=== PATIENT | female | born 1995 | race Caucasian/White ===

== ENCOUNTER 2017-03-31 14:51 | Emergency (ER) | payer SELFPAY ==
[~2017-03-31] VITALS: Ht 157.5 cm; Wt 63.5 kg
[~2017-03-31 14:51] MED LIST: ALBU8.5H2 IH; AMOX500C2 PO; ANTI14DR4 RIGHT EAR; AZTH250C PO; CIPR7.5D2 RIGHT EAR; Depo Provera; HYDR-3720 PO; METR500T PO; NAPR-243 PO; PRD20T PO; TRM50T PO
--- NOTE | 2017-03-31 16:23 | ED Upper Extremity ---
General Chief Complaint: Upper Extremity Stated Complaint: TINGLING FEELING ARMS,COULDNT SPEAK,ARMS LOCKED UP Source: patient Exam Limitations: no limitations History of Present Illness Time seen by provider: 16:20 Initial Comments To ER with reports of tingling and cramping in both of her hands that occurred while she was driving home. She states that her tongue "locked up" and she couldn't talk and she could feel her heart beating in her abdomen. In addition to this, she feels very anxious. She states that she's been under a little more increased stress than usual lately due to job transition. Spasms in her hands and her mouth are better she states, but she still is very shaky and anxious. Onset: just prior to arrival Severity: moderate Pain/Injury Location: bilateral hand Allergies and Home Medications Allergies Coded Allergies: No Known Drug Allergies (Unverified , 02/24/09) Home Medications No Active Prescriptions or Reported Meds Constitutional: see HPI EENTM: see HPI Respiratory: no symptoms reported Cardiovascular: no symptoms reported Genitourinary: no symptoms reported Musculoskeletal: no symptoms reported Skin: no symptoms reported Psychiatric/Neurological: See HPI, Anxiety Past Pmqmlcr-Fmxlvq-Rtrrne Hx Patient Social History Recent Foreign Travel: No Contact w/Someone Who Travel: No Surgeries HX Surgeries: Yes (WISDOM TEETH REMOVED) Respiratory Hx Respiratory Disorders: No Cardiovascular Hx Cardiac Disorders: No Neurological Hx Neurological Disorders: No Reproductive System Hx Reproductive Disorders: Yes (BILATERAL ADENEXAL MASS) Female Reproductive Disorders: Menstrual Problems, Ovarian Cyst Genitourinary Hx Genitourinary Disorders: No Gastrointestinal Hx Gastrointestinal Disorders: No Musculoskeletal Hx Musculoskeletal Disorders: No Endocrine Hx Endocrine Disorders: No HEENT HX ENT Disorders: No Cancer Hx Cancer: No Psychosocial Hx Psychiatric Problems: No Integumentary HX Skin/Integumentary Disorder: No Blood Transfusions Hx Blood Disorders: No Physical Exam Vital Signs Vital Sign - Last 12Hours 03/31/17 16:19 Temp 98.2 Pulse 78 Resp 16 B/P (MAP) 132/85 Capillary Refill : General Appearance: WD/WN, no apparent distress, other (anxious) HEENT: PERRL/EOMI, normal ENT inspection Neck: non-tender, full range of motion Respiratory: normal breath sounds, no respiratory distress, no accessory muscle use Gastrointestinal: normal bowel sounds, non tender, soft Shoulder: normal inspection, non-tender Elbow/Forearm: normal inspection, non-tender Wrist: Yes normal inspection, Yes non-tender Neurologic/Tendon: normal sensation, normal motor functions, normal tendon functions Neurologic/Psychiatric: alert, normal mood/affect, oriented x 3 Skin: normal color, warm/dry Progress/Results/Core Measures Results/Orders Lab Results Laboratory Tests Test 03/31/17 15:22 03/31/17 15:25 03/31/17 16:39 Range/Units Urine Color YELLOW Urine Clarity CLEAR Urine pH 6 5-9 Urine Specific [place] 1.010 L 1.016-1.022 Urine Protein NEGATIVE NEGATIVE Urine Glucose (UA) NEGATIVE NEGATIVE Urine Ketones NEGATIVE NEGATIVE Urine Nitrite NEGATIVE NEGATIVE Urine Bilirubin NEGATIVE NEGATIVE Urine Urobilinogen NORMAL NORMAL MG/DL Urine Leukocyte Esterase NEGATIVE NEGATIVE Urine RBC (Auto) 4+ H NEGATIVE Urine RBC 0-2 /HPF Urine WBC 0-2 /HPF Urine Squamous Epithelial Cells 0-2 /HPF Urine Crystals NONE /LPF Urine Bacteria NEGATIVE /HPF Urine Casts NONE /LPF Urine Mucus NEGATIVE /LPF Urine Culture Indicated NO Urine Opiates Screen NEGATIVE NEGATIVE Urine Oxycodone Screen NEGATIVE NEGATIVE Urine Methadone Screen NEGATIVE NEGATIVE Urine Propoxyphene Screen NEGATIVE NEGATIVE Urine Barbiturates Screen NEGATIVE NEGATIVE Ur Tricyclic Antidepressants Screen NEGATIVE NEGATIVE Urine Phencyclidine Screen NEGATIVE NEGATIVE Urine Amphetamines Screen NEGATIVE NEGATIVE Urine Methamphetamines Screen NEGATIVE NEGATIVE Urine Benzodiazepines Screen NEGATIVE NEGATIVE Urine Cocaine Screen NEGATIVE NEGATIVE Urine Cannabinoids Screen POSITIVE H NEGATIVE Urine Test NEGATIVE NEGATIVE White Blood Count 16.7 H 4.3-11.0 10^3/uL Red Blood Count 4.81 4.35-5.85 10^6/uL Hemoglobin 14.5 11.5-16.0 G/DL Hematocrit 42 35-52 % Mean Corpuscular Volume 87 80-99 FL Mean Corpuscular Hemoglobin 30 25-34 PG Mean Corpuscular Hemoglobin Concent 35 32-36 G/DL Red Cell Distribution Width 13.0 10.0-14.5 % Platelet Count 281 130-400 10^3/uL Mean Platelet Volume 10.2 7.4-10.4 FL Neutrophils (%) (Auto) 83 H 42-75 % Lymphocytes (%) (Auto) 12 12-44 % Monocytes (%) (Auto) 5 0-12 % Eosinophils (%) (Auto) 0 0-10 % Basophils (%) (Auto) 0 0-10 % Neutrophils # (Auto) 13.9 H 1.8-7.8 X 10^3 Lymphocytes # (Auto) 1.9 1.0-4.0 X 10^3 Monocytes # (Auto) 0.8 0.0-1.0 X 10^3 Eosinophils # (Auto) 0.0 0.0-0.3 10^3/uL Basophils # (Auto) 0.0 0.0-0.1 10^3/uL Neutrophils % (Manual) 76 % Lymphocytes % (Manual) 23 % Monocytes % (Manual) 1 % Eosinophils % (Manual) 0 % Basophils % (Manual) 0 % Band Neutrophils 0 % Blood Morphology Comment NORMAL Sodium Level 140 135-145 MMOL/L Potassium Level 3.4 L 3.6-5.0 MMOL/L Chloride Level 107 98-107 MMOL/L Carbon Dioxide Level 21 21-32 MMOL/L Anion Gap 12 5-14 MMOL/L Blood Urea Nitrogen 14 7-18 MG/DL Creatinine 0.83 0.60-1.30 MG/DL Estimat Glomerular Filtration Rate > 60 BUN/Creatinine Ratio 17 Glucose Level 76 70-105 MG/DL Calcium Level 10.0 8.5-10.1 MG/DL Total Bilirubin 0.8 0.1-1.0 MG/DL Aspartate Amino Transf (AST/SGOT) 14 5-34 U/L Alanine Aminotransferase (ALT/SGPT) 12 0-55 U/L Alkaline Phosphatase 57 40-136 U/L Total Protein 7.6 6.4-8.2 GM/DL Albumin 4.6 H 3.2-4.5 GM/DL My Orders Orders - JOCELYNN HOWARD TANK WASHER Cbc With Automated Diff (03/31/17 16:19) Comprehensive Metabolic Panel (03/31/17 16:19) Ua Culture If Indicated (03/31/17 16:19) Drug Screen Stat (Urine) (03/31/17 16:19) Thyroid Stimulating Hormone (03/31/17 16:19) Alprazolam Tablet (Xanax Tablet) (03/31/17 16:30) Hcg,Qualitative Urine (03/31/17 16:30) Manual Differential (03/31/17 16:39) Potassium Chloride (Tablet) (Klor Con Ta (03/31/17 17:30) Vital Signs/I&O Vital Sign - Last 12Hours 03/31/17 16:19 Temp 98.2 Pulse 78 Resp 16 B/P (MAP) 132/85 Departure Impression Impression: Primary Impression: Anxiety Disposition: 01 HOME, SELF-CARE Condition: Stable Departure-Patient Inst. Decision time for Depature: 16:22 Referrals: NO,LOCAL PHYSICIAN (PCP/Family) Primary Care Physician Patient Instructions: Panic Disorder Add. Discharge Instructions: 1. Her white blood cells were a little high side. This would warrant being rechecked next week by your regular physician. 2. Return to ER for any concerns 3. All discharge instructions reviewed with patient and/or family. Voiced understanding. Scripts No Active Prescriptions or Reported Meds JOCELYNN HOWARD APRN Mar 31, 2017 16:23
[2017-03-31 16:29] LABS: BILIRUBIN,URINE NEGATIVE (NEGATIVE); KETONES,URINE NEGATIVE (NEGATIVE); LEUKOCYTE ESTERASE ,URINE NEGATIVE (NEGATIVE); NITRITE,URINE NEGATIVE (NEGATIVE); PH,URINE 6 (5-9); PROTEIN,URINE NEGATIVE (NEGATIVE); UROBILINOGEN,URINE NORMAL (NORMAL)
[2017-03-31] MEDS ORDERED: ALPRAZolam 0.5 MG (XANAX) TAB PO SCH (16:30)
[2017-03-31 16:43] LABS: WBC,URINE 0-2 /HPF
[2017-03-31 16:44] LABS: SQUAMOUS EPITHELIAL CELL,UR 0-2 /HPF
[2017-03-31 16:51] LABS: BASOPHILS % (AUTO) 0 % (0-10); EOSINOPHILS % (AUTO) 0 % (0-10); LYMPHOCYTES # (AUTO) 1.9 X 10^3 (1.0-4.0); LYMPHOCYTES % (AUTO) 12 % (12-44); MEAN CORPUSCULAR HEMOGLOBIN 30 PG (25-34); MEAN CORPUSCULAR HGB CONC 35 G/DL (32-36); MEAN CORPUSCULAR VOLUME 87 FL (80-99); MEAN PLATELET VOLUME 10.2 FL (7.4-10.4); MONOCYTES # (AUTO) 0.8 X 10^3 (0.0-1.0); MONOCYTES % (AUTO) 5 % (0-12); NEUTROPHILS # (AUTO) 13.9 X 10^3 (1.8-7.8); NEUTROPHILS % (AUTO) 83 % (42-75); PLATELET COUNT 281 10^3/uL (130-400); RED BLOOD COUNT 4.81 10^6/uL (4.35-5.85); WHITE BLOOD COUNT 16.7 10^3/uL (4.3-11.0)
[2017-03-31 17:03] LABS: BAND NEUTROPHILS 0 %; BASOPHILS % (MANUAL) 0 %; EOSINOPHILS % (MANUAL) 0 %; LYMPHOCYTES % (MANUAL) 23 %; NEUTROPHILS % (MANUAL) 76 %
[2017-03-31 17:16] LABS: ALANINE AMINOTRANSFERASE 12 U/L (0-55); ALBUMIN 4.6 GM/DL (3.2-4.5); ANION GAP 12 MMOL/L (5-14); ASPARTATE AMINO TRANSFERASE 14 U/L (5-34); BILIRUBIN,TOTAL 0.8 MG/DL (0.1-1.0); BLOOD UREA NITROGEN 14 MG/DL (7-18); BUN/CREATININE RATIO 17; CARBON DIOXIDE 21 MMOL/L (21-32); CHLORIDE 107 MMOL/L (98-107); CREATININE SERUM 0.83 MG/DL (0.60-1.30); GFR ESTIMATED > 60; GLUCOSE 76 MG/DL (70-105); POTASSIUM 3.4 MMOL/L (3.6-5.0); SODIUM 140 MMOL/L (135-145); TOTAL PROTEIN 7.6 GM/DL (6.4-8.2)
[2017-03-31] MEDS ORDERED: KCL 10 MEQ TAB (MICRO K) PO ONE (17:30)
[2017-03-31 17:42] VITALS: BP 128/92
== END 2017-03-31 17:42 | disposition home or self-care (01) ==
LOC: EDUNIT# 14:51 → ER 14:55
DX: F41.9 Anxiety disorder, unspecified (principal); Z87.42 Personal history of other diseases of the female genital tract; Z98.818 Other dental procedure status
CPT/HCPCS: 36415; 80053; 80306; 81000; 84443; 84703; 85007; 85027; 99283

== ENCOUNTER 2018-12-24 14:43 | Emergency (ER) | payer SELFPAY ==
[~2018-12-24] VITALS: Ht 157.5 cm; Wt 90.7 kg
[2018-12-24 15:12] LABS: BASOPHILS % (AUTO) 0 % (0-10); EOSINOPHILS # (AUTO) 0.1 10^3/uL (0.0-0.3); EOSINOPHILS % (AUTO) 0 % (0-10); HEMATOCRIT 42 % (35-52); HEMOGLOBIN 14.1 G/DL (11.5-16.0); LYMPHOCYTES # (AUTO) 3.6 X 10^3 (1.0-4.0); LYMPHOCYTES % (AUTO) 19 % (12-44); MEAN CORPUSCULAR HEMOGLOBIN 27 PG (25-34); MEAN CORPUSCULAR HGB CONC 34 G/DL (32-36); MEAN CORPUSCULAR VOLUME 80 FL (80-99); MEAN PLATELET VOLUME 10.3 FL (7.4-10.4); MONOCYTES # (AUTO) 1.5 X 10^3 (0.0-1.0); MONOCYTES % (AUTO) 8 % (0-12); NEUTROPHILS # (AUTO) 13.2 X 10^3 (1.8-7.8); NEUTROPHILS % (AUTO) 72 % (42-75); PLATELET COUNT 307 10^3/uL (130-400); RED CELL DISTRIBUTION WIDTH 15.8 % (10.0-14.5); WHITE BLOOD COUNT 18.4 10^3/uL (4.3-11.0)
[2018-12-24] MEDS ORDERED: NS IV 1000 ML 1,000 ML IV SCH (15:15)
[2018-12-24 15:22] LABS: ALANINE AMINOTRANSFERASE 16 U/L (0-55); ALBUMIN 4.8 GM/DL (3.2-4.5); ALKALINE PHOSPHATASE 90 U/L (40-136); BILIRUBIN,TOTAL 0.4 MG/DL (0.1-1.0); BUN/CREATININE RATIO 11; CALCIUM 9.6 MG/DL (8.5-10.1); CARBON DIOXIDE 16 MMOL/L (21-32); CHLORIDE 105 MMOL/L (98-107); CREATININE SERUM 0.87 MG/DL (0.60-1.30); GFR ESTIMATED > 60; GLUCOSE 113 MG/DL (70-105); POTASSIUM 3.4 MMOL/L (3.6-5.0); SODIUM 141 MMOL/L (135-145); TOTAL PROTEIN 7.8 GM/DL (6.4-8.2)
--- NOTE | 2018-12-24 15:27 | ED General ---
General Chief Complaint: General Problems/Pain Stated Complaint: NEUR PROBLEMS Source of Information: Patient Exam Limitations: No Limitations History of Present Illness Date Seen by Provider: Dec 24, 2018 Time Seen by Provider: 15:00 Allergies and Home Medications Allergies Coded Allergies: No Known Drug Allergies (Unverified , 02/24/09) Past Ydxovfx-Jlauae-Qdrccw Hx Patient Social History Drug of Choice: marijuana 2nd Hand Smoke Exposure: No Recent Foreign Travel: No Contact w/Someone Who Travel: No Recent Hopitalizations: No Past Medical History Surgeries: Yes (WISDOM TEETH REMOVED, laparoscopy) Appendectomy, Bowel Surgery Respiratory: No Cardiac: No Neurological: No Reproductive Disorders: Yes (BILATERAL ADENEXAL MASS) Female Reproductive Disorders: Menstrual Problems, Endometriosis, Ovarian Cyst Gastrointestinal: No Musculoskeletal: No Endocrine: No Cancer: No Psychosocial: No Integumentary: No Blood Disorders: No Physical Exam Vital Signs Vital Signs - First Documented 12/24/18 14:43 Temp 98.5 Pulse 138 Resp 39 B/P (MAP) 151/105 (120) Pulse Ox 100 O2 Delivery Room Air Capillary Refill : Height, Weight, BMI Height: 5'2.00" Weight: 140lbs. oz. 63.434250ji; BMI Method:Stated Progress/Results/Core Measures Suspected Sepsis SIRS Temperature: Pulse: Respiratory Rate: Laboratory Tests 12/24/18 14:50: White Blood Count 18.4H Blood Pressure / Mean: Laboratory Tests 12/24/18 14:50: Creatinine 0.87, Platelet Count 307, Total Bilirubin 0.4 Results/Orders Lab Results Laboratory Tests Test 12/24/18 14:50 12/24/18 15:15 Range/Units White Blood Count 18.4 H 4.3-11.0 10^3/uL Red Blood Count 5.25 4.35-5.85 10^6/uL Hemoglobin 14.1 11.5-16.0 G/DL Hematocrit 42 35-52 % Mean Corpuscular Volume 80 80-99 FL Mean Corpuscular Hemoglobin 27 25-34 PG Mean Corpuscular Hemoglobin Concent 34 32-36 G/DL Red Cell Distribution Width 15.8 H 10.0-14.5 % Platelet Count 307 130-400 10^3/uL Mean Platelet Volume 10.3 7.4-10.4 FL Neutrophils (%) (Auto) 72 42-75 % Lymphocytes (%) (Auto) 19 12-44 % Monocytes (%) (Auto) 8 0-12 % Eosinophils (%) (Auto) 0 0-10 % Basophils (%) (Auto) 0 0-10 % Neutrophils # (Auto) 13.2 H 1.8-7.8 X 10^3 Lymphocytes # (Auto) 3.6 1.0-4.0 X 10^3 Monocytes # (Auto) 1.5 H 0.0-1.0 X 10^3 Eosinophils # (Auto) 0.1 0.0-0.3 10^3/uL Basophils # (Auto) 0.0 0.0-0.1 10^3/uL Neutrophils % (Manual) 74 % Lymphocytes % (Manual) 19 % Monocytes % (Manual) 6 % Eosinophils % (Manual) 1 % Basophils % (Manual) 0 % Band Neutrophils 0 % Blood Morphology Comment NORMAL Sodium Level 141 135-145 MMOL/L Potassium Level 3.4 L 3.6-5.0 MMOL/L Chloride Level 105 98-107 MMOL/L Carbon Dioxide Level 16 L 21-32 MMOL/L Anion Gap 20 H 5-14 MMOL/L Blood Urea Nitrogen 10 7-18 MG/DL Creatinine 0.87 0.60-1.30 MG/DL Estimat Glomerular Filtration Rate > 60 BUN/Creatinine Ratio 11 Glucose Level 113 H 70-105 MG/DL Calcium Level 9.6 8.5-10.1 MG/DL Corrected Calcium 8.5-10.1 MG/DL Total Bilirubin 0.4 0.1-1.0 MG/DL Aspartate Amino Transf (AST/SGOT) 16 5-34 U/L Alanine Aminotransferase (ALT/SGPT) 16 0-55 U/L Alkaline Phosphatase 90 40-136 U/L Total Protein 7.8 6.4-8.2 GM/DL Albumin 4.8 H 3.2-4.5 GM/DL Urine Color YELLOW Urine Clarity CLEAR Urine pH 5 5-9 Urine Specific [place] 1.025 H 1.016-1.022 Urine Protein 1+ H NEGATIVE Urine Glucose (UA) NEGATIVE NEGATIVE Urine Ketones 2+ H NEGATIVE Urine Nitrite NEGATIVE NEGATIVE Urine Bilirubin NEGATIVE NEGATIVE Urine Urobilinogen NORMAL NORMAL MG/DL Urine Leukocyte Esterase NEGATIVE NEGATIVE Urine RBC (Auto) 3+ H NEGATIVE Urine RBC RARE /HPF Urine WBC NONE /HPF Urine Squamous Epithelial Cells 2-5 /HPF Urine Crystals NONE /LPF Urine Bacteria NEGATIVE /HPF Urine Casts NONE /LPF Urine Mucus NEGATIVE /LPF Urine Culture Indicated NO Urine Test NEGATIVE NEGATIVE Urine Opiates Screen NEGATIVE NEGATIVE Urine Oxycodone Screen NEGATIVE NEGATIVE Urine Methadone Screen NEGATIVE NEGATIVE Urine Propoxyphene Screen NEGATIVE NEGATIVE Urine Barbiturates Screen NEGATIVE NEGATIVE Ur Tricyclic Antidepressants Screen NEGATIVE NEGATIVE Urine Phencyclidine Screen NEGATIVE NEGATIVE Urine Amphetamines Screen NEGATIVE NEGATIVE Urine Methamphetamines Screen NEGATIVE NEGATIVE Urine Benzodiazepines Screen NEGATIVE NEGATIVE Urine Cocaine Screen NEGATIVE NEGATIVE Urine Cannabinoids Screen POSITIVE H NEGATIVE My Orders Orders - KATERINE HERNANDEZ Comprehensive Metabolic Panel (12/24/18 15:02) Ua Culture If Indicated (12/24/18 15:02) Ed Iv/Invasive Line Start (12/24/18 15:02) Cbc With Automated Diff (12/24/18 15:02) Drug Screen Stat (Urine) (12/24/18 15:02) Ns Iv 1000 Ml (Sodium Chloride 0.9%) (12/24/18 15:15) Manual Differential (12/24/18 14:50) Hcg,Qualitative Urine (12/24/18 15:26) Vital Signs/I&O 12/24/18 14:43 Temp 98.5 Pulse 138 Resp 39 B/P (MAP) 151/105 (120) Pulse Ox 100 O2 Delivery Room Air Capillary Refill : Departure Impression Primary Impression: Panic attack Disposition: 01 HOME, SELF-CARE Condition: Stable/Unchanged Departure-Patient Inst. Decision time for Depature: 15:56 Referrals: NO,LOCAL PHYSICIAN (PCP/Family) Primary Care Physician Patient Instructions: Panic Disorder (DC) Add. Discharge Instructions: Refrain from using the weight loss medication. Follow-up with your primary care provider within 1 week for recheck. Return back to the emergency room for worsening symptoms or concerns as needed. All discharge instructions reviewed with patient and/or family. Voiced understanding. KATERINE HERNANDEZ Dec 24, 2018 15:27
[2018-12-24 15:28] LABS: BILIRUBIN,URINE NEGATIVE (NEGATIVE); CLARITY,URINE CLEAR; COLOR,URINE YELLOW; GLUCOSE, URINE (UA) NEGATIVE (NEGATIVE); KETONES,URINE 2+ (NEGATIVE); LEUKOCYTE ESTERASE ,URINE NEGATIVE (NEGATIVE); NITRITE,URINE NEGATIVE (NEGATIVE); PH,URINE 5 (5-9); PROTEIN,URINE 1+ (NEGATIVE); UROBILINOGEN,URINE NORMAL (NORMAL)
[2018-12-24 15:40] LABS: BAND NEUTROPHILS 0 %; BASOPHILS % (MANUAL) 0 %; EOSINOPHILS % (MANUAL) 1 %; LYMPHOCYTES % (MANUAL) 19 %; MONOCYTES % (MANUAL) 6 %; NEUTROPHILS % (MANUAL) 74 %; RBC MORPH NORMAL
[2018-12-24 15:41] LABS: BACTERIA,URINE NEGATIVE /HPF; RBC,URINE RARE /HPF
[2018-12-24 15:45] LABS: AMPHETAMINE SCREEN, URINE NEGATIVE (NEGATIVE); BARBITURATE SCREEN URINE NEGATIVE (NEGATIVE); BENZODIAZEPINES SCREEN URINE NEGATIVE (NEGATIVE); CANNABINOID SCREEN, URINE POSITIVE (NEGATIVE); COCAINE SCREEN URINE NEGATIVE (NEGATIVE); METHADONE STAT NEGATIVE (NEGATIVE); METHAMPHETAMINE SCREEN URINE S NEGATIVE (NEGATIVE); OPIATE SCREEN URINE NEGATIVE (NEGATIVE); OXYCODONE STAT NEGATIVE (NEGATIVE); PROPOXYPHENE STAT NEGATIVE (NEGATIVE); TRICYCLIC ANTIDEPRESSANTS SCRE NEGATIVE (NEGATIVE)
--- OUTSIDE RECORDS SUMMARY | 2018-12-24 16:28 | XMS REPORT ---
Author Author Migration, Doctor Organization [facility] Address Unknown Phone Unavailable Care Team Providers Care Telephone Quotation Clerk Name Role Phone Migration, Doctor Unavailable Unavailable PROBLEMS Type Condition ICD9-CM Code LUO63-SL Code Onset Dates Condition Status SNOMED Code Problem General counseling for initiation of other contraceptive measures V25.02 Active 046011347018865 Problem General counseling for prescription of oral contraceptives V25.01 Active 102426791895715 Problem Problems related to high-risk sexual behavior V69.2 Active 912801315 Problem Screening examination for venereal disease V74.5 Active 910127588 Problem Unspecified otitis media 382.9 Active 27068261 Problem Surveillance of other previously prescribed contraceptive method V25.49 Active 101288334 Problem Dysfunction of Eustachian tube 381.81 Active 09691832 Problem Unspecified contraceptive management V25.9 Active 179670301 Problem Need for prophylactic vaccination and inoculation, Influenza V04.81 Active 197928187 Problem Unspecified symptom associated with female genital organs 625.9 Active 118037722 Problem Leukorrhea, not specified as infective 623.5 Active 264338372 Problem Other and unspecified ovarian cyst 620.2 Active 05000518 ALLERGIES No Information ENCOUNTERS Encounter Location Date Diagnosis [facility] [id number] [place] [phone] May, Allergic rhinitis, unspecified seasonality, unspecified trigger J30.9 and Common cold J00 [facility] IN [facility] [id number] [place] [address] Jul, Tooth abscess K04.7 and Pain, dental K08.89 [facility] [id number] [place] [address] Dec, [facility] [id number] [place] [address] Dec, [facility] [address] [place] [address] January, [facility] [address] [id number] [place] [address] January, [facility] [place] [facility] [address] [id number] [place] [address] Nov, [facility] [place] [facility] [address] [id number] [place] [address] Nov, [facility] [place] [facility] [address] [id number] [place] [address] Jul, [facility] [place] [facility] [address] [id number] [place] [address] Jul, [facility] [place] [facility] [address] [id number] [place] [address] May, [facility] [place] [facility] [address] [id number] [place] [address] Mar, [facility] [place] [facility] [address] [id number] [place] [address] Mar, [facility] [place] [facility] [address] [id number] [place] [address] Mar, [facility] [place] [facility] [address] [id number] [place] [address] Mar, [facility] [place] [facility] [address] [id number] [place] [address] Feb, [facility] [place] [facility] [address] [id number] [place] [address] Nov, [facility] [place] [facility] [address] [id number] [place] [address] Sep, [facility] [place] [facility] [address] [id number] [place] [address] Sep, [facility] [place] [facility] [address] [id number] [place] [address] Jul, [facility] [place] [facility] [address] [facility] [id number] [address] Jul, [facility] [address] [id number] [address] Apr, [facility] [address] [address] Apr, [facility] [address], [place] [address] January, [facility] [address] [id number] [address] Jul, [facility] [address], [place] [address] Feb, IMMUNIZATIONS No Known Immunizations SOCIAL HISTORY Never Assessed REASON FOR VISIT EMR-[facility] PLAN OF CARE VITAL SIGNS MEDICATIONS Medication Instructions Dosage Frequency Start Date End Date Duration Status tramadol by oral route Jul, Active Naproxen 500 mg take 1 tablet (500 mg) by oral route 2 times per day with food PRN Jul, Active Cephalexin 500 mg 1 capsule by Oral route 2 times per day for 10 days Sep, Active Flagyl 500 mg 1 tablet by Oral route 2 times per day for 7 days Mar Active Aviane 0.1-20 mg-mcg 1 tablet by Oral route 1 time per day Jul, Active RESULTS No Results PROCEDURES No Known procedures INSTRUCTIONS MEDICATIONS ADMINISTERED No Known Medications MEDICAL (GENERAL) HISTORY Type Description Date Surgical History section 03/2018
--- OUTSIDE RECORDS SUMMARY | 2018-12-24 16:28 | XMS REPORT ---
Author Author Migration, Doctor Organization [facility] Address Unknown Phone Unavailable Care Team Providers Care Metal Drill Press Operator Name Role Phone Migration, Doctor Unavailable Unavailable PROBLEMS Type Condition ICD9-CM Code HVB03-HY Code Onset Dates Condition Status SNOMED Code Problem General counseling for initiation of other contraceptive measures V25.02 Active [id number] Problem General counseling for prescription of oral contraceptives V25.01 Active 442533550276689 Problem Problems related to high-risk sexual behavior V69.2 Active 193232692 Problem Screening examination for venereal disease V74.5 Active 841551197 Problem Unspecified otitis media 382.9 Active 95256021 Problem Surveillance of other previously prescribed contraceptive method V25.49 Active 368626091 Problem Dysfunction of Eustachian tube 381.81 Active 43939528 Problem Unspecified contraceptive management V25.9 Active 221685461 Problem Need for prophylactic vaccination and inoculation, Influenza V04.81 Active 878448738 Problem Unspecified symptom associated with female genital organs 625.9 Active 623063417 Problem Leukorrhea, not specified as infective 623.5 Active 953423386 Problem Other and unspecified ovarian cyst 620.2 Active 64299257 ALLERGIES No Information ENCOUNTERS Encounter Location Date Diagnosis [facility] [id number] [place] [address] May, Allergic rhinitis, unspecified seasonality, unspecified trigger J30.9 and Common cold J00 [facility] IN [facility] [id number] [place] [address] Jul, Tooth abscess K04.7 and Pain, dental K08.89 [facility] [id number] [place] [address] Dec, [facility] [id number] [place] [address] Dec, [facility] [address] [place] [address] January, [facility] [address] [id number] [place] [address] January, [facility] [place] [facility] [address] [id number] [place] [address] Nov, [facility] [place] [facility] [address] [id number] [place] [address] Nov, [facility] [place] [facility] [address] [id number] [place] [address] Jul, [facility] [place] [facility] [address] [id number] [place] [address] Jul, [facility] [place] [facility] [address] [id number] [place] [address] May, [facility] [place] [facility] [address] [id number] [place] [address] Mar, [facility] [place] [facility] [address] [id number] [place] [address] Mar, [facility] [place] [facility] [address] [id number] [place] [address] Mar, [facility] [place] [facility] [address] [id number] [place] [address] Mar, [facility] [place] [facility] [address] [id number] [place] [address] Feb, [facility] [place] [facility] [address] [id number] [place] [address] Nov, [facility] [place] [facility] [address] [id number] [place] [address] Sep, [facility] [place] [facility] [address] [id number] [place] [address] Sep, [facility] [place] [facility] [address] [id number] [place] [address] Jul, [facility] [place] [facility] [address] [id number] [address] Jul, [facility] [address] [address] Apr, [facility] [address] [address] Apr, [facility] [address] [address] January, [facility] [address] [address] Jul, [facility] [address] [address] Feb, IMMUNIZATIONS No Known Immunizations SOCIAL HISTORY Never Assessed REASON FOR VISIT EMR-[facility] [place] [facility] PLAN OF CARE VITAL SIGNS MEDICATIONS No Known Medications RESULTS No Results PROCEDURES No Known procedures INSTRUCTIONS MEDICATIONS ADMINISTERED No Known Medications MEDICAL (GENERAL) HISTORY Type Description Date Surgical History section 03/2018
--- OUTSIDE RECORDS SUMMARY | 2018-12-24 16:29 | XMS REPORT | Continuity of Care Document ---
Author Organization Unknown Address Unknown Allergies Active Description Code Type Severity Reaction Onset Reported/Identified Relationship to Patient Clinical Status Yes No Known Drug Allergies [id number] Drug Allergy Mild N/A 02/24/2009 Medications There is no data. Problems Date Dx Coded Attending Type Code Diagnosis Diagnosed By 05/26/2010 461.9 SINUSITIS ACUTE 05/26/2010 461.9 SINUSITIS ACUTE 05/26/2010 461.9 SINUSITIS ACUTE 05/26/2010 461.9 SINUSITIS ACUTE 05/26/2010 461.9 SINUSITIS ACUTE 05/26/2010 461.9 SINUSITIS ACUTE 05/26/2010 IKER POTTS APRN A 461.9 SINUSITIS ACUTE 05/26/2010 IKER POTTS APRN A 461.9 SINUSITIS ACUTE 05/26/2010 LETHA POTTS APRNIDI A 461.9 SINUSITIS ACUTE 05/26/2010 LETHA POTTS APRNIDI A 461.9 SINUSITIS ACUTE 02/15/2011 599.0 URINARY TRACT INFECTION 02/15/2011 599.0 URINARY TRACT INFECTION 02/15/2011 599.0 URINARY TRACT INFECTION 02/15/2011 599.0 URINARY TRACT INFECTION 02/15/2011 599.0 URINARY TRACT INFECTION 02/15/2011 599.0 URINARY TRACT INFECTION 02/15/2011 LETHA POTTS APRNIDI A 599.0 URINARY TRACT INFECTION 02/15/2011 DELROY STALLINGS IKER A 599.0 URINARY TRACT INFECTION 02/15/2011 LETHA POTTS APRNIDI A 599.0 URINARY TRACT INFECTION 02/15/2011 LETHA POTTS APRNIDI A 599.0 URINARY TRACT INFECTION 07/06/2011 V25.09 CONTRACEPTIVE COUNSELING - GENERAL 07/06/2011 V65.45 STD COUNSELING 07/06/2011 V25.09 CONTRACEPTIVE COUNSELING - GENERAL 07/06/2011 V65.45 STD COUNSELING 07/06/2011 V25.09 CONTRACEPTIVE COUNSELING - GENERAL 07/06/2011 V65.45 STD COUNSELING 07/06/2011 V25.09 CONTRACEPTIVE COUNSELING - GENERAL 07/06/2011 V65.45 STD COUNSELING 07/06/2011 V25.09 CONTRACEPTIVE COUNSELING - GENERAL 07/06/2011 V65.45 STD COUNSELING 07/06/2011 V25.09 CONTRACEPTIVE COUNSELING - GENERAL 07/06/2011 V65.45 STD COUNSELING 07/06/2011 IKER POTTS APRN A V25.09 CONTRACEPTIVE COUNSELING - GENERAL 07/06/2011 IKER POTTS APRN A V65.45 STD COUNSELING 07/06/2011 IKER POTTS APRN A V25.09 CONTRACEPTIVE COUNSELING - GENERAL 07/06/2011 IKER POTTS APRN A V65.45 STD COUNSELING 07/06/2011 IKER POTTS APRN A V25.09 CONTRACEPTIVE COUNSELING - GENERAL 07/06/2011 IKER POTTS APRN A V65.45 STD COUNSELING 07/06/2011 IKER POTTS APRN A V25.09 CONTRACEPTIVE COUNSELING - GENERAL 07/06/2011 IKER POTTS APRN A V65.45 STD COUNSELING 01/11/2012 V25.9 CONTRACEPTION MANAGEMENT 01/11/2012 V69.2 HIGH-RISK SEXUAL BEHAVIOR 01/11/2012 V25.9 CONTRACEPTION MANAGEMENT 01/11/2012 V69.2 HIGH-RISK SEXUAL BEHAVIOR 01/11/2012 V25.9 CONTRACEPTION MANAGEMENT 01/11/2012 V69.2 HIGH-RISK SEXUAL BEHAVIOR 01/11/2012 V25.9 CONTRACEPTION MANAGEMENT 01/11/2012 V69.2 HIGH-RISK SEXUAL BEHAVIOR 01/11/2012 V25.9 CONTRACEPTION MANAGEMENT 01/11/2012 V69.2 HIGH-RISK SEXUAL BEHAVIOR 01/11/2012 V25.9 CONTRACEPTION MANAGEMENT 01/11/2012 V69.2 HIGH-RISK SEXUAL BEHAVIOR 01/11/2012 IKER POTTS APRN A V25.9 CONTRACEPTION MANAGEMENT 01/11/2012 IKER POTTS APRN A V69.2 HIGH-RISK SEXUAL BEHAVIOR 01/11/2012 IKER POTTS APRN A V25.9 CONTRACEPTION MANAGEMENT 01/11/2012 IKER POTTS APRN A V69.2 HIGH-RISK SEXUAL BEHAVIOR 01/11/2012 LETHA POTTS APRNCHRIS Zhao V25.9 CONTRACEPTION MANAGEMENT 01/11/2012 LETHA POTTS APRNCHRIS Zhao V69.2 HIGH-RISK SEXUAL BEHAVIOR 01/11/2012 LETHA OPTTS APRNCHRIS Zhao V25.9 CONTRACEPTION MANAGEMENT 01/11/2012 LETHA POTTS APRNCHRIS Zhao V69.2 HIGH-RISK SEXUAL BEHAVIOR 04/09/2012 V25.49 CONTRACEPTION SURVEILLANCE (REPEAT RX) 04/09/2012 V25.49 CONTRACEPTION SURVEILLANCE (REPEAT RX) 04/09/2012 V25.49 CONTRACEPTION SURVEILLANCE (REPEAT RX) 04/09/2012 V25.49 CONTRACEPTION SURVEILLANCE (REPEAT RX) 04/09/2012 V25.49 CONTRACEPTION SURVEILLANCE (REPEAT RX) 04/09/2012 V25.49 CONTRACEPTION SURVEILLANCE (REPEAT RX) 04/09/2012 DELROY ATHLETIC TRAINERIKER No V25.49 CONTRACEPTION SURVEILLANCE (REPEAT RX) 04/09/2012 DELROY ATHLETIC TRAINER, IKER A V25.49 CONTRACEPTION SURVEILLANCE (REPEAT RX) 04/09/2012 DELROY ATHLETIC TRAINER, IKER A V25.49 CONTRACEPTION SURVEILLANCE (REPEAT RX) 04/09/2012 DELROY VAILMarybel IKER A V25.49 CONTRACEPTION SURVEILLANCE (REPEAT RX) 09/19/2012 382.9 OTITIS MEDIA 09/19/2012 V04.81 FLU DX (3 YRS AND ABOVE, IM) 09/19/2012 382.9 OTITIS MEDIA 09/19/2012 V04.81 FLU DX (3 YRS AND ABOVE, IM) 09/19/2012 382.9 OTITIS MEDIA 09/19/2012 V04.81 FLU DX (3 YRS AND ABOVE, IM) 09/19/2012 382.9 OTITIS MEDIA 09/19/2012 V04.81 FLU DX (3 YRS AND ABOVE, IM) 09/19/2012 382.9 OTITIS MEDIA 09/19/2012 V04.81 FLU DX (3 YRS AND ABOVE, IM) 09/19/2012 DELROY ATHLETIC TRAINERIKER No 382.9 OTITIS MEDIA 09/19/2012 DELROY ATHLETIC TRAINER, IKER A V04.81 FLU DX (3 YRS AND ABOVE, IM) 09/19/2012 DELROYIKER RAINEY APRN 382.9 OTITIS MEDIA 09/19/2012 DELROY ATHLETIC TRAINER, IKER A V04.81 FLU DX (3 YRS AND ABOVE, IM) 09/19/2012 IKER POTTS APRN A 382.9 OTITIS MEDIA 09/19/2012 IKER POTTS APRN A V04.81 FLU DX (3 YRS AND ABOVE, IM) 09/19/2012 DELROY STALLINGS, IKER A 382.9 OTITIS MEDIA 09/19/2012 DELROY STALLINGS, IKER A V04.81 FLU DX (3 YRS AND ABOVE, IM) 10/02/2012 381.81 EUSTACHIAN TUBE DYSFUNCTION 10/02/2012 381.81 EUSTACHIAN TUBE DYSFUNCTION 10/02/2012 381.81 EUSTACHIAN TUBE DYSFUNCTION 10/02/2012 381.81 EUSTACHIAN TUBE DYSFUNCTION 10/02/2012 IKER POTTS APRN A 381.81 EUSTACHIAN TUBE DYSFUNCTION 10/02/2012 IKER POTTS APRN A 381.81 EUSTACHIAN TUBE DYSFUNCTION 10/02/2012 IKER POTTS APRN A 381.81 EUSTACHIAN TUBE DYSFUNCTION 10/02/2012 IKER POTTS APRN A 381.81 EUSTACHIAN TUBE DYSFUNCTION 02/14/2013 V25.02 CONTRACEPTION - ANY METHOD 02/14/2013 V25.02 CONTRACEPTION - ANY METHOD 02/14/2013 IKER POTTS APRN A V25.02 CONTRACEPTION - ANY METHOD 02/14/2013 IKER POTTS APRN A V25.02 CONTRACEPTION - ANY METHOD 02/14/2013 IKER POTTS APRN A V25.02 CONTRACEPTION - ANY METHOD 02/14/2013 IKER POTTS APRN A V25.02 CONTRACEPTION - ANY METHOD 03/04/2013 625.9 PELVIC PAIN 03/04/2013 IKER POTTS APRN A 625.9 PELVIC PAIN 03/04/2013 DELROY STALLINGS, IKER A 625.9 PELVIC PAIN 03/04/2013 IKER POTTS APRN A 625.9 PELVIC PAIN 03/04/2013 DELROY STALLINGS, IKER A 625.9 PELVIC PAIN 03/12/2013 IKER POTTS APRN A 623.5 LEUKORRHEA NOT SPECIFIED INFECTIVE 03/12/2013 IKER POTTS APRN V74.5 STD SCREEN 03/12/2013 DELROY ATHLETIC TRAINER, IKER A 623.5 LEUKORRHEA NOT SPECIFIED INFECTIVE 03/12/2013 DELROY STALLINGS, IKER A V74.5 STD SCREEN 03/12/2013 DELROY STALLINGS, IKER A 623.5 LEUKORRHEA NOT SPECIFIED INFECTIVE 03/12/2013 DELROY VAILN, IKER A V74.5 STD SCREEN 03/12/2013 LETHA POTTS APRNIDI A 623.5 LEUKORRHEA NOT SPECIFIED INFECTIVE 03/12/2013 DELROY STALLINGS, IKER A V74.5 STD SCREEN 07/28/2013 JOCELYNN HOWARD APRN Ot 620.2 OVARIAN CYST NEC/NOS 07/28/2013 JOCELYNN HOWARD APRN Ot 625.9 FEM GENITAL SYMPTOMS NOS 07/30/2013 LETHA POTTS APRNIDI A 620.2 OTHER AND UNSPECIFIED OVARIAN CYST 07/30/2013 LETHA POTTS APRNIDI A V25.01 CONTRACEPTION - ORAL CONTRACEPTION 07/30/2013 LETHA POTTS APRNIDI A 620.2 OTHER AND UNSPECIFIED OVARIAN CYST 07/30/2013 DELROY STALLINGS, IKER A V25.01 CONTRACEPTION - ORAL CONTRACEPTION 07/30/2013 LETHA POTTS APRNIDI A 620.2 OTHER AND UNSPECIFIED OVARIAN CYST 07/30/2013 LETHA POTTS APRNIDI A V25.01 CONTRACEPTION - ORAL CONTRACEPTION 08/17/2013 JOCELYNN HOWARD APRN Ot 490 BRONCHITIS NOS 08/17/2013 JOCELYNN HOWARD APRN Ot 786.2 COUGH 09/08/2013 JOCELYNN HOWARD APRN Ot 380.10 INFEC OTITIS EXTERNA NOS 09/08/2013 JOCELYNN HOWARD APRN Ot 388.70 OTALGIA NOS 03/31/2017 LA VALLE MD Ot 285.9 ANEMIA NOS 03/31/2017 LA VALLE MD Ot 625.8 FEM GENITAL SYMPTOMS NEC 03/31/2017 LA VALLE MD Ot V72.63 PRE-PROCEDURAL LABORATORY EXAMINATION 03/31/2017 Ot 220 BENIGN NEOPLASM OVARY 03/31/2017 Ot 540.9 ACUTE APPENDICITIS NOS 03/31/2017 Ot 620.8 NONINFL DIS OVA/ADNX NEC 03/31/2017 JOCELYNN HOWARD APRN Ot F41.9 ANXIETY DISORDER, UNSPECIFIED 03/31/2017 JOCELYNN HOWARD APRN Ot R25.2 CRAMP AND SPASM 03/31/2017 JOCELYNN HOWARD APRN Ot Z87.42 PERSONAL HISTORY OF OTH DISEASES OF THE 03/31/2017 JOCELYNN HOWARD APRN Ot Z98.818 OTHER DENTAL PROCEDURE STATUS 03/31/2017 LA VALLE MD Ot 285.9 ANEMIA NOS 03/31/2017 LA VALLE MD Ot 625.8 FEM GENITAL SYMPTOMS NEC 03/31/2017 LA VALLE MD, Ot V72.63 PRE-PROCEDURAL LABORATORY EXAMINATION 03/31/2017 Ot 220 BENIGN NEOPLASM OVARY 03/31/2017 Ot 540.9 ACUTE APPENDICITIS NOS 03/31/2017 Ot 620.8 NONINFL DIS OVA/ADNX NEC 12/24/2018 LA VALLE MD Ot 285.9 ANEMIA NOS 12/24/2018 LA VALLE MD Ot 625.8 FEM GENITAL SYMPTOMS NEC 12/24/2018 LA VALLE MD, Ot V72.63 PRE-PROCEDURAL LABORATORY EXAMINATION 12/24/2018 Ot 220 BENIGN NEOPLASM OVARY 12/24/2018 Ot 540.9 ACUTE APPENDICITIS NOS 12/24/2018 Ot 620.8 NONINFL DIS OVA/ADNX NEC Procedures Code Description [place] [address] THERAPUTIC INJ SQ/IM 07/09/2012 J1055 DEPO-PROVERA INJ 150 MG 07/09/2012 14340 URINE TEST (IN- HOUSE) 07/09/2012 67703 THERAPUTIC INJ SQ/IM 11/15/2012 J1050 DEPO PROVERA 11/15/2012 61329 URINE TEST (IN- HOUSE) 11/15/2012 25951 URINE TEST (IN- HOUSE) 02/14/2013 J1050 DEPO PROVERA 02/14/2013 69275 THERAPUTIC INJ SQ/IM 02/14/2013 96072 UA LONG DIP 03/04/2013 Results Test Result Range Urine drug screening test - 03/31/17 15:22 Urine phencyclidine detection by screening method NEGATIVE NEGATIVE Urine benzodiazepines detection by screening method NEGATIVE NEGATIVE Urine cocaine detection NEGATIVE NEGATIVE Urine amphetamines detection by screening method NEGATIVE NEGATIVE Urine methamphetamine detection by screening method NEGATIVE NEGATIVE Urine cannabinoids detection by screening method POSITIVE NEGATIVE Urine opiates detection by screening method NEGATIVE NEGATIVE Urine barbiturates detection NEGATIVE NEGATIVE Screening urine tricyclic antidepressants detection NEGATIVE NEGATIVE Urine methadone detection by screening method NEGATIVE NEGATIVE Urine oxycodone detection NEGATIVE NEGATIVE Urine propoxyphene detection NEGATIVE NEGATIVE Complete urinalysis with reflex to culture - 03/31/17 15:22 Urine color determination YELLOW NRG Urine clarity determination CLEAR NRG Urine pH measurement by test strip 6 5-9 Specific gravity of urine by test strip 1.010 1.016- 1.022 Urine protein assay by test strip, semi-quantitative NEGATIVE NEGATIVE Urine glucose detection by automated test strip NEGATIVE NEGATIVE Erythrocytes detection in urine sediment by light microscopy 4+ NEGATIVE Urine ketones detection by automated test strip NEGATIVE NEGATIVE Urine nitrite detection by test strip NEGATIVE NEGATIVE Urine total bilirubin detection by test strip NEGATIVE NEGATIVE Urine urobilinogen measurement by automated test strip (mass/volume) NORMAL NORMAL Urine leukocyte esterase detection by dipstick NEGATIVE NEGATIVE Automated urine sediment erythrocyte count by microscopy (number/high power field) [HPF] NRG Automated urine sediment leukocyte count by microscopy (number/high power field ) [HPF] NRG Bacteria detection in urine sediment by light microscopy NEGATIVE NRG Squamous epithelial cells detection in urine sediment by light microscopy 0-2 NRG Crystals detection in urine sediment by light microscopy NONE NRG Casts detection in urine sediment by light microscopy NONE NRG Mucus detection in urine sediment by light microscopy NEGATIVE NRG Complete urinalysis with reflex to culture NO NRG Urine beta human chorionic gonadotropin (hCG) measurement - 03/31/17 15:25 Urine beta human chorionic gonadotropin (hCG) measurement NEGATIVE NEGATIVE Complete blood count (CBC) with automated white blood cell (WBC) differential - 03/31/17 16:39 Blood leukocytes automated count (number/volume) 16.7 10*3/uL 4.3-11.0 Blood erythrocytes automated count (number/volume) 4.81 10*6/uL 4.35-5.85 Venous blood hemoglobin measurement (mass/volume) 14.5 g/dL 11.5-16.0 Blood hematocrit (volume fraction) 42 % 35-52 Automated erythrocyte mean corpuscular volume 87 [foz_us] 80-99 Automated erythrocyte mean corpuscular hemoglobin (mass per erythrocyte) 30 pg 25-34 Automated erythrocyte mean corpuscular hemoglobin concentration measurement ( mass/volume) 35 g/dL 32-36 Automated erythrocyte distribution width ratio 13.0 % 10.0-14.5 Automated blood platelet count (count/volume) 281 10*3/uL 130-400 Automated blood platelet mean volume measurement 10.2 [foz_us] 7.4-10.4 Automated blood neutrophils/100 leukocytes 83 % 42-75 Automated blood lymphocytes/100 leukocytes 12 % 12-44 Blood monocytes/100 leukocytes 5 % 0-12 Automated blood eosinophils/100 leukocytes 0 % 0-10 Automated blood basophils/100 leukocytes 0 % 0-10 Blood neutrophils automated count (number/volume) 13.9 10*3 1.8-7.8 Blood lymphocytes automated count (number/volume) 1.9 10*3 1.0-4.0 Blood monocytes automated count (number/volume) 0.8 10*3 0.0-1.0 Automated eosinophil count 0.0 10*3/uL 0.0-0.3 Automated blood basophil count (count/volume) 0.0 10*3/uL 0.0-0.1 Blood manual differential performed detection - 03/31/17 16:39 Blood monocytes/100 leukocytes 1 % NR Manual blood segmented neutrophils/100 leukocytes 76 % NRG Blood band neutrophils/100 leukocytes 0 % NRG Manual blood lymphocytes/100 leukocytes 23 % NRG Manual eosinophils/100 leukocytes in nose 0 % NRG Manual blood basophils/100 leukocytes 0 % NRG Blood erythrocyte morphology finding identification NORMAL [facility] Comprehensive metabolic panel - 03/31/17 16:39 Serum or plasma sodium measurement (moles/volume) 140 mmol/L 135-145 Serum or plasma potassium measurement (moles/volume) 3.4 mmol/L 3.6-5.0 Serum or plasma chloride measurement (moles/volume) 107 mmol/L 98-107 Carbon dioxide 21 mmol/L 21-32 Serum or plasma anion gap determination (moles/volume) 12 mmol/L 5-14 Serum or plasma urea nitrogen measurement (mass/volume) 14 mg/dL 7-18 Serum or plasma creatinine measurement (mass/volume) 0.83 mg/dL 0.60-1.30 Serum or plasma urea nitrogen/creatinine mass ratio 17 NRG Serum or plasma creatinine measurement with calculation of estimated glomerular filtration rate > NRG Serum or plasma glucose measurement (mass/volume) 76 mg/dL 70-105 Serum or plasma calcium measurement (mass/volume) 10.0 mg/dL 8.5-10.1 Serum or plasma total bilirubin measurement (mass/volume) 0.8 mg/dL 0.1-1.0 Serum or plasma alkaline phosphatase measurement (enzymatic activity/volume) 57 U/L 40-136 Serum or plasma aspartate aminotransferase measurement (enzymatic activity/ volume) 14 U/L 5-34 Serum or plasma alanine aminotransferase measurement (enzymatic activity/volume ) 12 U/L 0-55 Serum or plasma protein measurement (mass/volume) 7.6 g/dL 6.4-8.2 Serum or plasma albumin measurement (mass/volume) 4.6 g/dL 3.2-4.5 THYROID STIMULATING HORMONE - 03/31/17 16:39 THYROID STIMULATING HORMONE 0.60 u[iU]/mL 0.35-4.94 Complete blood count (CBC) with automated white blood cell (WBC) differential - 12/24/18 14:50 Blood leukocytes automated count (number/volume) 18.4 10*3/uL 4.3-11.0 Blood erythrocytes automated count (number/volume) 5.25 10*6/uL 4.35-5.85 Venous blood hemoglobin measurement (mass/volume) 14.1 g/dL 11.5-16.0 Blood hematocrit (volume fraction) 42 % 35-52 Automated erythrocyte mean corpuscular volume 80 [foz_us] 80-99 Automated erythrocyte mean corpuscular hemoglobin (mass per erythrocyte) 27 pg 25-34 Automated erythrocyte mean corpuscular hemoglobin concentration measurement ( mass/volume) 34 g/dL 32-36 Automated erythrocyte distribution width ratio 15.8 % 10.0-14.5 Automated blood platelet count (count/volume) 307 10*3/uL 130-400 Automated blood platelet mean volume measurement 10.3 [foz_us] 7.4-10.4 Automated blood neutrophils/100 leukocytes 72 % 42-75 Automated blood lymphocytes/100 leukocytes 19 % 12-44 Blood monocytes/100 leukocytes 8 % 0-12 Automated blood eosinophils/100 leukocytes 0 % 0-10 Automated blood basophils/100 leukocytes 0 % 0-10 Blood neutrophils automated count (number/volume) 13.2 10*3 1.8-7.8 Blood lymphocytes automated count (number/volume) 3.6 10*3 1.0-4.0 Blood monocytes automated count (number/volume) 1.5 10*3 0.0-1.0 Automated eosinophil count 0.1 10*3/uL 0.0-0.3 Automated blood basophil count (count/volume) 0.0 10*3/uL 0.0-0.1 Comprehensive metabolic panel - 12/24/18 14:50 Serum or plasma sodium measurement (moles/volume) 141 mmol/L 135-145 Serum or plasma potassium measurement (moles/volume) 3.4 mmol/L 3.6-5.0 Serum or plasma chloride measurement (moles/volume) 105 mmol/L 98-107 Carbon dioxide 16 mmol/L 21-32 Serum or plasma anion gap determination (moles/volume) 20 mmol/L 5-14 Serum or plasma urea nitrogen measurement (mass/volume) 10 mg/dL 7-18 Serum or plasma creatinine measurement (mass/volume) 0.87 mg/dL 0.60-1.30 Serum or plasma urea nitrogen/creatinine mass ratio 11 NRG Serum or plasma creatinine measurement with calculation of estimated glomerular filtration rate > NRG Serum or plasma glucose measurement (mass/volume) 113 mg/dL 70-105 Serum or plasma calcium measurement (mass/volume) 9.6 mg/dL 8.5-10.1 Serum or plasma total bilirubin measurement (mass/volume) 0.4 mg/dL 0.1-1.0 Serum or plasma alkaline phosphatase measurement (enzymatic activity/volume) 90 U/L 40-136 Serum or plasma aspartate aminotransferase measurement (enzymatic activity/ volume) 16 U/L 5-34 Serum or plasma alanine aminotransferase measurement (enzymatic activity/volume ) 16 U/L 0-55 Serum or plasma protein measurement (mass/volume) 7.8 g/dL 6.4-8.2 Serum or plasma albumin measurement (mass/volume) 4.8 g/dL 3.2-4.5 Encounters ACCT No. Visit Date/Time Discharge Status Pt. Type Provider Facility Loc./Unit Complaint [id number] 01/09/2014 14:09:00 01/09/2014 23:59:59 [facility] Outpatient IKER POTTS APRN [id number] 07/30/2013 09:53:00 07/30/2013 23:59:59 [facility] Outpatient IKER POTTS APRN [id number] 07/30/2013 09:53:00 07/30/2013 23:59:59 [facility] Outpatient IKER POTTS APRN [id number] 03/12/2013 13:41:00 03/12/2013 23:59:59 [facility] Outpatient IKER POTTS APRN [id number] 11/15/2012 16:16:00 11/15/2012 23:59:59 [facility] Outpatient [id number] 10/02/2012 17:02:00 10/02/2012 23:59:59 [facility] Outpatient [id number] 09/19/2012 16:19:00 09/19/2012 23:59:59 [facility] Outpatient [id number] 07/09/2012 16:12:00 07/09/2012 23:59:59 [facility] Outpatient [id number] 03/04/2013 12:50:00 Document Registration [id number] 02/14/2013 17:10:00 Document Registration [id number] 03/31/2017 14:55:00 03/31/2017 17:42:00 DIS Emergency JOCELYNN HOWARD APRN [facility] ER TINGLING FEELING ARMS, COULDNT SPEAK,ARMS LOCKED UP [id number] 12/05/2013 11:37:00 12/05/2013 23:59:59 CLS Outpatient TORI FISCHER, [place] [facility] PREOP BILATERAL ADENEXAL MASS [id number] 09/08/2013 11:42:00 09/08/2013 12:42:00 DIS Emergency JOCELYNN HOWARD APRN [facility] ER R SIDE EAR PAIN [id number] 08/17/2013 17:10:00 08/17/2013 18:07:00 DIS Emergency JOCELYNN HOWARD APRN [facility] ER COUGH [id number] 07/28/2013 15:48:00 07/28/2013 17:52:00 DIS Emergency JOCELYNN HOWARD APRN [facility] ER PELVIC PAIN,CRAMPING [id number] 03/03/2013 12:15:00 03/03/2013 23:59:59 CLS Outpatient [id number] 12/24/2018 14:45:00 ACT Emergency BERNKATERINE MONTAÑO [facility] ER NEUR PROBLEMS [id number] 12/09/2013 06:56:00 Document Registration
--- OUTSIDE RECORDS SUMMARY | 2018-12-24 16:29 | XMS REPORT ---
Author Author JOHANNY CROSS Organization [facility] Address [address] [place] [address] Care Team Providers Care Timekeeping Supervisor Name Role Phone JOHANNY CROSS Unavailable PROBLEMS Type Condition ICD9-CM Code [id number] Code Onset Dates Condition Status SNOMED Code Problem General counseling for initiation of other contraceptive measures V25.02 Active 832988653134816 Problem Problems related to high-risk sexual behavior V69.2 Active 060713517 Problem General counseling for prescription of oral contraceptives V25.01 Active [id number] Problem Screening examination for venereal disease V74.5 Active 441422674 Problem Unspecified contraceptive management V25.9 Active 656285581 Problem Surveillance of other previously prescribed contraceptive method V25.49 Active 140158322 Problem Dysfunction of Eustachian tube 381.81 Active 72947664 Problem Unspecified otitis media 382.9 Active 00435701 Problem Unspecified symptom associated with female genital organs 625.9 Active 468736695 Problem Need for prophylactic vaccination and inoculation, Influenza V04.81 Active 478801791 Problem Other and unspecified ovarian cyst 620.2 Active 29895458 Problem Leukorrhea, not specified as infective 623.5 Active 832215736 ALLERGIES No Known Allergies ENCOUNTERS Encounter Location Date Diagnosis [facility] [id number] [place] [phone] May, Allergic rhinitis, unspecified seasonality, unspecified trigger J30.9 and Common cold J00 [facility] [id number] [place] [phone] 05 Jul, 2016 Tooth abscess K04.7 and Pain, dental K08.89 [facility] [id number] [place] [address] 14 Dec, 2014 [facility] [id number] [place] [address] Dec, [facility] [address] [id number] [place] [address] January, [facility] [place] [facility] [address] [id number] [place] [address] January, [facility] [address] [id number] [place] [address] Nov, [facility] [place] [facility] [address] [id number] [place] [address] Nov, [facility] [address] [id number] [place] [address] Jul, [facility] [place] [facility] [address] [id number] [place] [address] Jul, [facility] [address] [id number] [place] [address] May, [facility] [place] [facility] [address] [id number] [place] [address] Mar, [facility] [place] [facility] [address] [id number] [place] [address] Mar, [facility] [place] [facility] [address] [id number] [place] [address] Mar, [facility] [place] [facility] [address] [id number] [place] [address] Mar, [facility] [place] [facility] [address] [id number] [place] [address] Feb, [facility] [place] [facility] [address] [id number] [place] [address] Nov, [facility] [place] [facility] [address] [id number] [place] [address] Sep, [facility] [place] [facility] [address] [id number] [place] [address] Sep, [facility] [place] [facility] [id number] [address] Jul, [facility] [id number] [address] Jul, [facility] [id number] [address] Apr, [facility] [id number] [address] Apr, [facility] [id number] [address] January, [facility] [id number] [address] Jul, [facility] [id number] [address] Feb, IMMUNIZATIONS No Known Immunizations SOCIAL HISTORY Never Assessed REASON FOR VISIT Cough and congestion JStrasserRN PLAN OF CARE Activity Details Follow Up w/ PCP, 1 Week Reason:if symptoms worsen or not improving VITAL SIGNS Height 61 in 2018-05-26 Weight 207 lbs 2018-05-26 Temperature 97.4 degrees Fahrenheit 2018-05-26 Heart Rate 68 bpm 2018-05-26 Respiratory Rate 20 2018-05-26 BMI 39.11 kg/m2 2018-05-26 Blood pressure systolic 120 mmHg 2018-05-26 Blood pressure diastolic 80 mmHg 2018-05-26 MEDICATIONS Medication Instructions Dosage Frequency Start Date End Date Duration Status GuaiFENesin ER 1200 MG Orally every 12 hrs 1 tablet as needed 12h May, May, 7 days Active Robitussin 12 Hour Cough 30 MG/5ML Orally every 12 hrs 10 ml as needed 12h Active Cetirizine HCl 10 mg Orally Once a day 1 tablet 24h May, Jun, 30 day(s) Active Fluticasone Propionate 50 MCG/ACT Nasally Once a day 1 spray in each nostril 24h May, 30 day(s) Active Aleve 220 MG Orally every 12 hrs 1 tablet as needed 12h Active RESULTS No Results PROCEDURES No Known procedures INSTRUCTIONS MEDICATIONS ADMINISTERED No Known Medications MEDICAL (GENERAL) HISTORY Type Description Date Surgical History section 03/2018
--- OUTSIDE RECORDS SUMMARY | 2018-12-24 16:29 | XMS REPORT ---
Author Author ABDIAZIZ COTTRELL Organization [employer] Address Unknown Phone Unavailable Care Team Providers Care Heading Repairer Name Role Phone ABDIAZIZ COTTRELL CP Unavailable Allergies No Known Allergies Problems Problem Type Condition Code Onset Dates Condition Status Problem Other and unspecified ovarian cyst 620.2 Active Problem Need for prophylactic vaccination and inoculation, Influenza V04.81 Active Problem Unspecified otitis media 382.9 Active Problem Surveillance of other previously prescribed contraceptive method V25.49 Active Problem Screening examination for venereal disease V74.5 Active Problem Unspecified symptom associated with female genital organs 625.9 Active Problem Problems related to high-risk sexual behavior V69.2 Active Problem General counseling for initiation of other contraceptive measures V25.02 Active Problem Leukorrhea, not specified as infective 623.5 Active Problem Unspecified contraceptive management V25.9 Active Assessment Pain, dental K08.89 Active Assessment Tooth abscess K04.7 Active Problem Dysfunction of Eustachian tube 381.81 Active Problem General counseling for prescription of oral contraceptives V25.01 Active Medications Medication Code System Code Instructions Start Date End Date Status Dosage Tramadol HCl [facility] [address]-20 50 MG Orally every 6 hrs Jul 09, 2016 Jul 14, 2016 1 tablet as needed Aleve [facility] [address]-60 220 MG Orally every 12 hrs 1 tablet as needed Amoxicillin [facility] [address]-19 500 MG Orally every 12 hrs Jul 09, 2016 Jul 19, 2016 1 capsule Procedures Procedure Coding System Code Date THER/PROPH/DIAG INJ, SC/IM CPT-4 77171 Jul 09, 2016 Office Visit, Est Pt., Level 3 CPT-4 43329 Jul 09, 2016 TORADOL (IM) 60 MG/2ML (UP TO 15 MG) CPT-4 J1885 Jul 09, 2016 Vital Signs Date/Time: Jul 09, 2016 Cardiac Monitoring Heart Rate 100 bpm Weight 129.6 lbs Height 61 in BMI 24.49 Index Blood Pressure Diastolic 82 mmHg Blood Pressure Systolic 129 mmHg Results No Known Results Summary Purpose [employer] Submission
[2018-12-24 17:00] VITALS: BP 99/87
== END 2018-12-24 17:00 | disposition home or self-care (01) ==
LOC: EDUNIT# 14:43 → ER 14:45
DX: F41.0 Panic disorder [episodic paroxysmal anxiety] (principal); Z90.49 Acquired absence of other specified parts of digestive tract; Z98.890 Other specified postprocedural states; Z87.448 Personal history of other diseases of urinary system
CPT/HCPCS: 36415; 80053; 80306; 81000; 84703; 85007; 85027

== ENCOUNTER 2020-08-08 10:43 | Emergency (ER) | payer SELFPAY ==
[~2020-08-08] VITALS: Ht 157 cm; Wt 84.9 kg
[2020-08-08 11:13] LABS: BILIRUBIN,URINE NEGATIVE (NEGATIVE); CLARITY,URINE CLEAR; COLOR,URINE YELLOW; GLUCOSE, URINE (UA) NEGATIVE (NEGATIVE); KETONES,URINE NEGATIVE (NEGATIVE); LEUKOCYTE ESTERASE ,URINE NEGATIVE (NEGATIVE); NITRITE,URINE NEGATIVE (NEGATIVE); PROTEIN,URINE NEGATIVE (NEGATIVE)
[2020-08-08 11:28] LABS: AMORPHOUS SEDIMENT,UR FEW AMOR URATES /LPF; BACTERIA,URINE FEW /HPF
[2020-08-08] MEDS ORDERED: ACHD5005 PO (12:27)
--- NOTE | 2020-08-08 12:27 | ED GU-Female ---
General Chief Complaint: Abdominal/GI Problems Stated Complaint: LOW ABD PAIN Nursing Triage Note: Patient ambulatory to ER with c/o lower abdominal/pelvic pain that began this morning. Pt states she has a history of ovarian cysts and endometriosis and has had to have surgery for this in the past. She states the pain is similar today. She denies any burning with urination. Nursing Sepsis Screen: No Definite Risk Source: patient Exam Limitations: no limitations History of Present Illness Date Seen by Provider: Aug 08, 2020 Time Seen by Provider: 10:49 Initial Comments This 25-year-old young lady presents to the emergency room with bilateral pelvic pain that started this morning. It was worse initially and has eased up a bit. She has history of endometriosis and states she has similar pain monthly correlated with cycles. However, this pain is more intense. She denies any associated symptoms such as nausea, vomiting, diarrhea, dysuria, vaginal discharge, fever, etc. She is not tender to palpation in her pelvis or abdomen. She denies any risk factors for STIs. She has had a little bit of soreness with intercourse in recent weeks. She has had both ovarian cysts and endometriosis in the past. She denies . Bedside test was negative. Allergies and Home Medications Allergies Coded Allergies: No Known Drug Allergies (Unverified , 02/24/09) Home Medications Hydrocodone/Acetaminophen 1 Each Tablet, 1-2 EACH PO Q4H PRN for PAIN- BREAKTHROUGH Prescribed by: JILL BERMEO on 08/08/20 4338 Patient Home Medication List Home Medication List Reviewed: Yes Review of Systems Review of Systems Constitutional: no symptoms reported EENTM: no symptoms reported Respiratory: no symptoms reported Cardiovascular: no symptoms reported Gastrointestinal: see HPI Genitourinary: see HPI Musculoskeletal: no symptoms reported Skin: no symptoms reported Psychiatric/Neurological: No Symptoms Reported Endocrine: No Symptoms Reported Past Ujzrlmi-Rnjzev-Yaljrn Hx Past Med/Social Hx: Reviewed Nursing Past Med/Soc Hx Patient Social History Alcohol Use: Denies Use Recreational Drug Use: No Drug of Choice: marijuana Smoking Status: Current Everyday Smoker Type Used: Cigarettes 2nd Hand Smoke Exposure: Yes Recent Foreign Travel: No Contact w/Someone Who Travel: No Recent Infectious Disease Expo: No Recent Hopitalizations: No Physical Abuse: No Sexual Abuse: No Mistreated: No Fear: No Immunizations Up To Date PED Vaccines UTD: Yes Past Medical History Surgeries: Yes (WISDOM TEETH REMOVED, laparoscopy) Appendectomy, Bowel Surgery Respiratory: No Cardiac: No Neurological: No : No Last Menstrual Period: Jul 19, 2020 Reproductive Disorders: Yes (BILATERAL ADENEXAL MASS) Female Reproductive Disorders: Menstrual Problems, Endometriosis, Ovarian Cyst Gastrointestinal: No Musculoskeletal: No Endocrine: No Cancer: No Psychosocial: No Integumentary: No Blood Disorders: No Physical Exam Vital Signs Vital Signs - First Documented 08/08/20 10:59 Temp 36.3 Pulse 80 Resp 16 B/P (MAP) 121/93 (102) Pulse Ox 97 O2 Delivery Room Air Capillary Refill : Less Than 3 Seconds Height, Weight, BMI Height: 5'2.00" Weight: 200lbs. oz. 90.479343ls; 34.00 BMI Method:Stated General Appearance: WD/WN, mild distress HEENT: PERRL/EOMI, normal ENT inspection Neck: normal inspection Cardiovascular: regular rate, rhythm, no edema, no murmur Respiratory: lungs clear, normal breath sounds, no respiratory distress Gastrointestinal: normal bowel sounds, non tender, soft Extremities: normal inspection, no pedal edema Neurologic/Psychiatric: gas mask inspector II-XII nml as tested, no motor/sensory deficits, alert, normal mood/affect, oriented x 3 Skin: normal color, warm/dry Progress/Results/Core Measures Suspected Sepsis Recent Fever Within 48 Hours: No Infection Criteria Present: None New/Unexplained Altered Menta: No Sepsis Screen: No Definite Risk SIRS Temperature: Pulse: 80 Respiratory Rate: 16 Blood Pressure 121 /93 Mean: 102 Results/Orders Lab Results My Orders Vital Signs/I&O Capillary Refill : Less Than 3 Seconds Blood Pressure Mean: 102 Progress Note : Progress Note Patient was seen and examined. Urinalysis was obtained and showed no evidence of infection. Bedside test was negative. She denies any risk factors for STIs or vaginal symptoms. She therefore declined a pelvic exam in the ER. Exam is unremarkable. She has no tenderness. Given the bilateral nature, this is unlikely an ovarian cyst. Pain seems consistent with her endometriosis in the past and that is the likely etiology today. We discussed return precautions and the need for follow-up in the outpatient setting. Departure Impression Primary Impression: Pelvic pain Additional Impression: History of endometriosis Disposition: HOME, SELF-CARE Condition: Improved Departure-Patient Inst. Decision time for Depature: 12:22 Referrals: NO,LOCAL PHYSICIAN (PCP/Family) Primary Care Physician Patient Instructions: Endometriosis, Severe Abdominal Pain, Adult (DC) Add. Discharge Instructions: You may continue taking an NSAID anti-inflammatory such as ibuprofen or naproxen (Aleve) for primary pain control. Use hydrocodone as prescribed for pain not controlled by [id number] NSAIDs. Follow-up with Dr. Wolff as soon as possible. If you have worsening symptoms of pelvic pain or you develop tenderness of your abdomen and pelvis over the weekend, you should present to a facility that can perform ultrasound services such as [facility] or [facility] in [place]. Also return to the ER if you develop additional symptoms such as fever, vomiting, etc. All discharge instructions reviewed with patient and/or family. Voiced understanding. Scripts Hydrocodone/Acetaminophen (Hydrocodone-Acetamin 5-325 mg) 1 Each Tablet 1-2 EACH PO Q4H PRN for PAIN-BREAKTHROUGH, #15 TAB Prov: JILL ONEILL MD 08/08/20 Copy Copies To 1: LA WOLFF MD, JOSHUA T MD Aug 08, 2020 12:27
[2020-08-08] MEDS ORDERED: HYDROcodone/APAP 5 MG/325 MG (LORTAB) TAB PO ONE (12:30)
[2020-08-08 12:54] VITALS: BP 113/74
== END 2020-08-08 12:55 | disposition home or self-care (01) ==
LOC: EDUNIT# 10:43 → ER 10:44
DX: R10.2 Pelvic and perineal pain (principal); F17.210 Nicotine dependence, cigarettes, uncomplicated; Z87.42 Personal history of other diseases of the female genital tract
CPT/HCPCS: 81000; 84703; 87088; 99283

== ENCOUNTER 2020-10-16 18:49 | Emergency (ER) | payer SELFPAY ==
[~2020-10-16] VITALS: Ht 155 cm; Wt 77.0 kg
[~2020-10-16 18:49] MED LIST changes: +ACHD5005 PO
--- NOTE | 2020-10-16 18:56 | ED General ---
General Stated Complaint: ANXIETY;OVERDOSE Source of Information: Patient, EMS Exam Limitations: No Limitations History of Present Illness Date Seen by Provider: Oct 16, 2020 Time Seen by Provider: 18:55 Initial Comments To ER with reports of anxiety and overdose. She took between 5 and 6 of the 100 mg tablets of tramadol which were her own prescription at about 5 PM in an attempt to calm down. She states that these were the tablets that were prescribed to be taken every 6 hours as needed. She has been very anxious today relating to her boyfriend and some stressors with her relationship. She states she was not trying to hurt herself, was just very anxious and wanted to calm down. She arrives to ER still very anxious. States that she "smoked some bad weed" at about 6 PM this evening and shortly thereafter her heart began to race. Timing/Duration: 1-2 Days Severity: Moderate Associated Systoms: Denies Symptoms Allergies and Home Medications Allergies Coded Allergies: No Known Drug Allergies (Unverified , 02/24/09) Home Medications Hydrocodone/Acetaminophen 1 Each Tablet, 1-2 EACH PO Q4H PRN for PAIN- BREAKTHROUGH Prescribed by: JILL BERMEO on 08/08/20 1228 Patient Home Medication List Home Medication List Reviewed: Yes Review of Systems Review of Systems Constitutional: see HPI EENTM: see HPI Respiratory: no symptoms reported Cardiovascular: no symptoms reported Genitourinary: no symptoms reported Musculoskeletal: no symptoms reported Skin: no symptoms reported Psychiatric/Neurological: See HPI, Anxiety Hematologic/Lymphatic: No Symptoms Reported Past Svfuykp-Ismcbk-Muizmq Hx Patient Social History Drug of Choice: marijuana Type Used: Cigarettes 2nd Hand Smoke Exposure: Yes Recent Hopitalizations: No Immunizations Up To Date PED Vaccines UTD: Yes Past Medical History Surgeries: Yes (WISDOM TEETH REMOVED, laparoscopy) Appendectomy, Bowel Surgery Respiratory: No Cardiac: No Neurological: No Reproductive Disorders: Yes (BILATERAL ADENEXAL MASS) Female Reproductive Disorders: Menstrual Problems, Endometriosis, Ovarian Cyst Gastrointestinal: No Musculoskeletal: No Endocrine: No Cancer: No Psychosocial: No Integumentary: No Blood Disorders: No Physical Exam Vital Signs Vital Signs - First Documented 10/16/20 18:53 Temp 36.6 Pulse 108 Resp 20 B/P (MAP) 129/95 (106) Pulse Ox 100 O2 Delivery Room Air Capillary Refill : Height, Weight, BMI Height: 5'2.00" Weight: 200lbs. oz. 90.383846mk; 34.00 BMI Method:Stated General Appearance: No Apparent Distress, WD/WN, Anxious Eyes: Bilateral Eye Normal Inspection, Bilateral Eye PERRL, Bilateral Eye EOMI HEENT: PERRL/EOMI, TMs Normal Neck: Full Range of Motion, Normal Inspection Respiratory: No Accessory Muscle Use, No Respiratory Distress Extremity: Normal Capillary Refill, Normal Inspection Neurologic/Psychiatric: Alert, Oriented x3 Skin: Normal Color, Warm/Dry (A) Progress/Results/Core Measures Suspected Sepsis SIRS Temperature: Pulse: Respiratory Rate: Laboratory Tests 10/16/20 19:00: White Blood Count 12.1H Blood Pressure / Mean: Laboratory Tests 10/16/20 19:00: Creatinine 1.16, Platelet Count 297, Total Bilirubin 0.6 Results/Orders Lab Results Laboratory Tests Test 10/16/20 19:00 10/16/20 20:52 Range/Units White Blood Count 12.1 H 4.3-11.0 10^3/uL Red Blood Count 5.52 H 3.80-5.11 10^6/uL Hemoglobin 15.5 11.5-16.0 g/dL Hematocrit 46 35-52 % Mean Corpuscular Volume 84 80-99 fL Mean Corpuscular Hemoglobin 28 25-34 pg Mean Corpuscular Hemoglobin Concent 34 32-36 g/dL Red Cell Distribution Width 13.3 10.0-14.5 % Platelet Count 297 130-400 10^3/uL Mean Platelet Volume 10.1 9.0-12.2 fL Immature Granulocyte % (Auto) 0 % Neutrophils (%) (Auto) 63 42-75 % Lymphocytes (%) (Auto) 29 12-44 % Monocytes (%) (Auto) 7 0-12 % Eosinophils (%) (Auto) 1 0-10 % Basophils (%) (Auto) 0 0-10 % Neutrophils # (Auto) 7.7 1.8-7.8 10^3/uL Lymphocytes # (Auto) 3.5 1.0-4.0 10^3/uL Monocytes # (Auto) 0.8 0.0-1.0 10^3/uL Eosinophils # (Auto) 0.1 0.0-0.3 10^3/uL Basophils # (Auto) 0.0 0.0-0.1 10^3/uL Immature Granulocyte # (Auto) 0.0 0.0-0.1 10^3/uL Sodium Level 137 135-145 MMOL/L Potassium Level 3.1 L 3.6-5.0 MMOL/L Chloride Level 102 98-107 MMOL/L Carbon Dioxide Level 18 L 21-32 MMOL/L Anion Gap 17 H 5-14 MMOL/L Blood Urea Nitrogen 11 7-18 MG/DL Creatinine 1.16 0.60-1.30 MG/DL Estimat Glomerular Filtration Rate 57 BUN/Creatinine Ratio 9 Glucose Level 116 H 70-105 MG/DL Calcium Level 10.3 H 8.5-10.1 MG/DL Corrected Calcium 8.5-10.1 MG/DL Total Bilirubin 0.6 0.1-1.0 MG/DL Aspartate Amino Transf (AST/SGOT) 18 5-34 U/L Alanine Aminotransferase (ALT/SGPT) 17 0-55 U/L Alkaline Phosphatase 77 40-136 U/L Total Protein 8.6 H 6.4-8.2 GM/DL Albumin 5.1 H 3.2-4.5 GM/DL Serum Test, Qualitative NEGATIVE NEGATIVE Salicylates Level < 5.0 L 5.0-20.0 MG/DL Acetaminophen Level < 10 L 10-30 UG/ML Serum Alcohol < 10 <10 MG/DL Urine Color YELLOW Urine Clarity CLEAR Urine pH 5.5 5-9 Urine Specific Gardner <=1.005 1.016-1.022 Urine Protein NEGATIVE NEGATIVE Urine Glucose (UA) NEGATIVE NEGATIVE Urine Ketones NEGATIVE NEGATIVE Urine Nitrite NEGATIVE NEGATIVE Urine Bilirubin NEGATIVE NEGATIVE Urine Urobilinogen 0.2 < = 1.0 MG/DL Urine Leukocyte Esterase NEGATIVE NEGATIVE Urine RBC (Auto) NEGATIVE NEGATIVE Urine RBC NONE /HPF Urine WBC NONE /HPF Urine Squamous Epithelial Cells 2-5 /HPF Urine Crystals NONE /LPF Urine Bacteria TRACE /HPF Urine Casts PRESENT /LPF Urine Hyaline Casts RARE /LPF Urine Mucus NEGATIVE /LPF Urine Culture Indicated NO Urine Opiates Screen NEGATIVE NEGATIVE Urine Oxycodone Screen NEGATIVE NEGATIVE Urine Methadone Screen NEGATIVE NEGATIVE Urine Propoxyphene Screen NEGATIVE NEGATIVE Urine Barbiturates Screen NEGATIVE NEGATIVE Ur Tricyclic Antidepressants Screen NEGATIVE NEGATIVE Urine Phencyclidine Screen NEGATIVE NEGATIVE Urine Amphetamines Screen POSITIVE H NEGATIVE Urine Methamphetamines Screen POSITIVE H NEGATIVE Urine Benzodiazepines Screen POSITIVE H NEGATIVE Urine Cocaine Screen NEGATIVE NEGATIVE Urine Cannabinoids Screen POSITIVE H NEGATIVE My Orders Orders - JOCELYNN HOWARD APRN Lorazepam Injection (Ativan Injection) (10/16/20 19:00) Hcg,Qualitative Serum (10/16/20 18:53) Cbc With Automated Diff (10/16/20 18:53) Comprehensive Metabolic Panel (10/16/20 18:53) Ua Culture If Indicated (10/16/20 18:53) Drug Screen Stat (Urine) (10/16/20 18:53) Alcohol (10/16/20 18:53) Salicylate (10/16/20 18:53) Acetaminophen (10/16/20 18:53) Ed Iv/Invasive Line Start (10/16/20 18:53) Ekg Tracing (10/16/20 19:45) Medications Given in ED Current Medications Medications Dose Ordered Sig/[place] Route Start Time Stop Time Status Last Admin Dose Admin Lorazepam 0.5 mg ONCE PRN IVP 10/16/20 19:00 10/16/20 19:11 0.5 MG Vital Signs/I&O 10/16/20 18:53 Temp 36.6 Pulse 108 Resp 20 B/P (MAP) 129/95 (106) Pulse Ox 100 O2 Delivery Room Air Capillary Refill : Departure Communication (Admissions) 2108-spoke with poison control. Patient is sleeping but arousable soon as I open the door to her room. States she is feeling much better. Poison control recommends observing for 6 hours after time of ingestion which was 5 PM. If she is at baseline we can discharged home. Impression Primary Impression: Substance abuse Additional Impression: Anxiety Disposition: 01 HOME, SELF-CARE Condition: Stable Departure-Patient Inst. Decision time for Depature: 21:16 Referrals: NO,LOCAL PHYSICIAN (PCP/Family) Primary Care Physician Patient Instructions: Anxiety, Adult ED Add. Discharge Instructions: 1. Return to ER for any concerns. Follow-up with your doctor next week. JOCELYNN HOWARD APRN Oct 16, 2020 18:56
[2020-10-16] MEDS ORDERED: LORazepam INJ 2 MG/ML (ATIVAN) VIAL IVP PRN (19:00)
[2020-10-16 19:03] LABS: BASOPHILS % (AUTO) 0 % (0-10); EOSINOPHILS # (AUTO) 0.1 10^3/uL (0.0-0.3); EOSINOPHILS % (AUTO) 1 % (0-10); HEMATOCRIT 46 % (35-52); HEMOGLOBIN 15.5 g/dL (11.5-16.0); LYMPHOCYTES # (AUTO) 3.5 10^3/uL (1.0-4.0); LYMPHOCYTES % (AUTO) 29 % (12-44); MEAN CORPUSCULAR HEMOGLOBIN 28 pg (25-34); MEAN CORPUSCULAR HGB CONC 34 g/dL (32-36); MEAN CORPUSCULAR VOLUME 84 fL (80-99); MEAN PLATELET VOLUME 10.1 fL (9.0-12.2); MONOCYTES # (AUTO) 0.8 10^3/uL (0.0-1.0); MONOCYTES % (AUTO) 7 % (0-12); NEUTROPHILS # (AUTO) 7.7 10^3/uL (1.8-7.8); NEUTROPHILS % (AUTO) 63 % (42-75); PLATELET COUNT 297 10^3/uL (130-400); WHITE BLOOD COUNT 12.1 10^3/uL (4.3-11.0)
[2020-10-16 19:15] LABS: CHLORIDE 102 MMOL/L (98-107); POTASSIUM 3.1 MMOL/L (3.6-5.0); SODIUM 137 MMOL/L (135-145)
[2020-10-16 19:16] LABS: ALBUMIN 5.1 GM/DL (3.2-4.5)
[2020-10-16 19:17] LABS: CALCIUM 10.3 MG/DL (8.5-10.1)
[2020-10-16 19:18] LABS: GLUCOSE 116 MG/DL (70-105); TOTAL PROTEIN 8.6 GM/DL (6.4-8.2)
[2020-10-16 19:19] LABS: CARBON DIOXIDE 18 MMOL/L (21-32)
[2020-10-16 19:20] LABS: BILIRUBIN,TOTAL 0.6 MG/DL (0.1-1.0)
[2020-10-16 19:22] LABS: ALKALINE PHOSPHATASE 77 U/L (40-136); CREATININE SERUM 1.16 MG/DL (0.60-1.30); GFR ESTIMATED 57
[2020-10-16 19:23] LABS: BUN/CREATININE RATIO 9
[2020-10-16 19:25] LABS: ALANINE AMINOTRANSFERASE 17 U/L (0-55); SALICYLATE < 5.0 MG/DL (5.0-20.0)
[2020-10-16 19:27] LABS: ACETAMINOPHEN < 10 UG/ML (10-30)
[2020-10-16 20:58] LABS: BILIRUBIN,URINE NEGATIVE (NEGATIVE); CLARITY,URINE CLEAR; COLOR,URINE YELLOW; GLUCOSE, URINE (UA) NEGATIVE (NEGATIVE); KETONES,URINE NEGATIVE (NEGATIVE); LEUKOCYTE ESTERASE ,URINE NEGATIVE (NEGATIVE); NITRITE,URINE NEGATIVE (NEGATIVE); PH,URINE 5.5 (5-9); PROTEIN,URINE NEGATIVE (NEGATIVE)
[2020-10-16 21:04] LABS: BACTERIA,URINE TRACE /HPF
[2020-10-16 21:05] LABS: HYALINE CASTS, URINE RARE /LPF
[2020-10-16 21:09] LABS: AMPHETAMINE SCREEN, URINE POSITIVE (NEGATIVE); BARBITURATE SCREEN URINE NEGATIVE (NEGATIVE); BENZODIAZEPINES SCREEN URINE POSITIVE (NEGATIVE); CANNABINOID SCREEN, URINE POSITIVE (NEGATIVE); COCAINE SCREEN URINE NEGATIVE (NEGATIVE); METHADONE STAT NEGATIVE (NEGATIVE); METHAMPHETAMINE SCREEN URINE S POSITIVE (NEGATIVE); OPIATE SCREEN URINE NEGATIVE (NEGATIVE); OXYCODONE STAT NEGATIVE (NEGATIVE); PROPOXYPHENE STAT NEGATIVE (NEGATIVE); TRICYCLIC ANTIDEPRESSANTS SCRE NEGATIVE (NEGATIVE)
[2020-10-16 23:00] VITALS: BP 114/94
== END 2020-10-16 23:00 | disposition home or self-care (01) ==
LOC: EDUNIT# 18:49 → ER 18:51
DX: F11.10 Opioid abuse, uncomplicated (principal); F41.9 Anxiety disorder, unspecified; Z77.22 Contact with and (suspected) exposure to environmental tobacco smoke (acute) (chronic)
CPT/HCPCS: 80053; 80306; 81000; 84703; 85025; 99284; G0480 ×3; 36415; 80320; 80329

== ENCOUNTER 2021-08-25 05:33 | Observation (INO) | payer SELFPAY ==
[~2021-08-25] VITALS: Ht 155 cm; Wt 62.0 kg
[2021-08-25] MEDS ORDERED: LACTATED RINGERS 1,000 ML IV ONE (06:30)
[2021-08-25] MEDS ORDERED: LORazepam INJ 2 MG/ML (ATIVAN) VIAL IVP ONE (06:30)
[2021-08-25] MEDS ORDERED: KETOROLAC 30 MG/ML VIAL IVP ONE (06:30)
[2021-08-25 06:38] LABS: BASOPHILS % (AUTO) 0 % (0-10); EOSINOPHILS # (AUTO) 0.1 10^3/uL (0.0-0.3); EOSINOPHILS % (AUTO) 1 % (0-10); HEMATOCRIT 37 % (35-52); HEMOGLOBIN 12.3 g/dL (11.5-16.0); LYMPHOCYTES # (AUTO) 1.7 10^3/uL (1.0-4.0); LYMPHOCYTES % (AUTO) 11 % (12-44); MEAN CORPUSCULAR HEMOGLOBIN 28 pg (25-34); MEAN CORPUSCULAR HGB CONC 33 g/dL (32-36); MEAN CORPUSCULAR VOLUME 84 fL (80-99); MEAN PLATELET VOLUME 9.6 fL (9.0-12.2); MONOCYTES # (AUTO) 0.9 10^3/uL (0.0-1.0); MONOCYTES % (AUTO) 6 % (0-12); NEUTROPHILS # (AUTO) 12.8 10^3/uL (1.8-7.8); NEUTROPHILS % (AUTO) 82 % (42-75); PLATELET COUNT 223 10^3/uL (130-400); WHITE BLOOD COUNT 15.5 10^3/uL (4.3-11.0)
[2021-08-25 07:03] LABS: ALBUMIN 3.4 GM/DL (3.2-4.5)
[2021-08-25 07:04] LABS: POTASSIUM 3.2 MMOL/L (3.6-5.0)
[2021-08-25 07:05] LABS: CALCIUM 8.7 MG/DL (8.5-10.1)
[2021-08-25 07:06] LABS: TOTAL PROTEIN 6.5 GM/DL (6.4-8.2)
[2021-08-25 07:08] LABS: BILIRUBIN,TOTAL 0.3 MG/DL (0.1-1.0)
[2021-08-25 07:10] LABS: CREATININE SERUM 0.77 MG/DL (0.60-1.30)
--- NOTE | 2021-08-25 07:10 | ED Psychosocial ---
General Chief Complaint: General Problems/Pain Stated Complaint: ANXIETY,JOINTS CRAMPING Nursing Triage Note: PT AMB TO ED BY POV WITH C/O JOINT PAIN AND MUSCLE CRAMPING X2 DAYS. PT REPORTS SHE FEELS LIKE "HER MUSCLES ARE LOCKING UP" SIMILARLY TO WHEN SHE HAS PANIC ATTACKS. PT REPORTS USING METHAMPHETAMINES YESTERDAY. Source: patient Exam Limitations: no limitations History of Present Illness Date Seen by Provider: Aug 25, 2021 Time Seen by Provider: 06:18 Initial Comments This 26-year-old young lady presents to the emergency room with complaints of sharp joint pains particularly in the right hand and wrist and left knee. She denies any trauma. She has had no fever. She does not recall ever having this problem before. Symptoms have been present for a couple of days. She has tried some bzup-eve-rkqxich pain medications which have not been helpful. She does use marijuana and methamphetamines including injected methamphetamines as r ecently as yesterday. She denies any health problems other than anxiety and depression. She is afebrile at this time. She does appear rather anxious and is perhaps hyperventilating. Allergies and Home Medications Allergies Coded Allergies: No Known Drug Allergies (Unverified , 02/24/09) Patient Home Medication List Home Medication List Reviewed: Yes No Active Prescriptions or Reported Meds Review of Systems Constitutional: no symptoms reported EENTM: no symptoms reported Respiratory: no symptoms reported Cardiovascular: no symptoms reported Gastrointestinal: no symptoms reported Genitourinary: no symptoms reported : No Musculoskeletal: see HPI Skin: no symptoms reported Psychiatric/Neurological: See HPI Past Fvxxgny-Rbtist-Wpvnog Hx Patient Social History Tobacco Use?: Yes Tobacco type used: Cigarettes Smoking Status: Current Everyday Smoker Use of E-Cig and/or Vaping dev: No Substance use?: Yes Substance type: Methamphetamine, Marijuana Substance frequency: Couple times a week Alcohol Use?: Yes Alcohol type: Hard Liquor Alcohol Frequency: Once in a while Pt feels they are or have been: No Immunizations Up To Date PED Vaccines UTD: Yes Influenza Vaccine Up-to-Date: No; Not Current First/Initial COVID19 Vaccinat: N/A Past Medical History Surgeries: Yes (WISDOM TEETH REMOVED, laparoscopy) Appendectomy, Bowel Surgery, Cystectomy (Ovarian cyst) Respiratory: No Cardiac: No Neurological: No : No Last Menstrual Period: Aug 11, 2021 Reproductive Disorders: Yes (BILATERAL ADENEXAL MASS) Female Reproductive Disorders: Menstrual Problems, Endometriosis, Ovarian Cyst Gastrointestinal: No Musculoskeletal: No Endocrine: No Cancer: No Psychosocial: Yes (Polysubstance abuse) Anxiety, Depression Integumentary: No Blood Disorders: No Physical Exam Vital Signs - First Documented 08/25/21 06:10 Temp 36.7 Pulse 106 Resp 16 B/P (MAP) 108/72 (84) Pulse Ox 100 O2 Delivery Room Air Capillary Refill : Less Than 3 Seconds Height, Weight, BMI Height: 5'2.00" Weight: 200lbs. oz. [id number]; 24.00 BMI Method:Stated General Appearance: WD/WN, moderate distress, thin HEENT: PERRL/EOMI, normal ENT inspection, other (Oropharynx somewhat dry) Neck: normal inspection Respiratory: lungs clear, normal breath sounds, no respiratory distress, no acc essory muscle use Cardiovascular: no edema, no murmur, tachycardia Gastrointestinal: normal bowel sounds, non tender, soft Extremities: no pedal edema, other (Very subtle erythema and warmth throughout the right hand. Tenderness in the majority of finger joints and wrist on the right. 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, no motor/sensory deficits, alert, oriented x 3, abnormal scrap crane operator II-XII, other (Moderately anxious) Appearance/Memory: appropriate appearance, appropriate insight, no memory impairment Behavior/Eye Contact: cooperative, good eye contact, normal speech Thoughts/Hallucinations: no apparent hallucination, auditory hallucinations Skin: normal color, warm/dry, other (Slight erythema of the right hand and wrist) Progress/Results/Core Measures Results/Orders Lab Results Laboratory Tests Test 08/25/21 06:30 08/25/21 07:45 08/25/21 08:29 08/25/21 08:54 Range/Units White Blood Count 15.5 H 4.3-11.0 10^3/uL Red Blood Count 4.45 3.80-5.11 10^6/uL Hemoglobin 12.3 11.5-16.0 g/dL Hematocrit 37 35-52 % Mean Corpuscular Volume 84 80-99 fL Mean Corpuscular Hemoglobin 28 25-34 pg Mean Corpuscular Hemoglobin Concent 33 32-36 g/dL Red Cell Distribution Width 13.8 10.0-14.5 % Platelet Count 223 130-400 10^3/uL Mean Platelet Volume 9.6 9.0-12.2 fL Immature Granulocyte % (Auto) 1 % Neutrophils (%) (Auto) 82 H 42-75 % Lymphocytes (%) (Auto) 11 L 12-44 % Monocytes (%) (Auto) 6 0-12 % Eosinophils (%) (Auto) 1 0-10 % Basophils (%) (Auto) 0 0-10 % Neutrophils # (Auto) 12.8 H 1.8-7.8 10^3/uL Lymphocytes # (Auto) 1.7 1.0-4.0 10^3/uL Monocytes # (Auto) 0.9 0.0-1.0 10^3/uL Eosinophils # (Auto) 0.1 0.0-0.3 10^3/uL Basophils # (Auto) 0.0 0.0-0.1 10^3/uL Immature Granulocyte # (Auto) 0.1 0.0-0.1 10^3/uL Neutrophils % (Manual) 89 % Lymphocytes % (Manual) 6 % Monocytes % (Manual) 4 % Eosinophils % (Manual) 1 % Blood Morphology Comment NORMAL Erythrocyte Sedimentation Rate 31 H 0-20 MM/HR Sodium Level 136 135-145 MMOL/L Potassium Level 3.2 L 3.6-5.0 MMOL/L Chloride Level 102 98-107 MMOL/L Carbon Dioxide Level 23 21-32 MMOL/L Anion Gap 11 5-14 MMOL/L Blood Urea Nitrogen 25 H 7-18 MG/DL Creatinine 0.77 0.60-1.30 MG/DL Estimat Glomerular Filtration Rate 91 BUN/Creatinine Ratio 32 Glucose Level 101 70-105 MG/DL Uric Acid 2.9 2.6-7.2 MG/DL Calcium Level 8.7 8.5-10.1 MG/DL Corrected Calcium 9.2 8.5-10.1 MG/DL Magnesium Level 1.8 1.6-2.4 MG/DL Total Bilirubin 0.3 0.1-1.0 MG/DL Aspartate Amino Transf (AST/SGOT) 15 5-34 U/L Alanine Aminotransferase (ALT/SGPT) 8 0-55 U/L Alkaline Phosphatase 74 40-136 U/L Total Creatine Kinase 31 29-168 U/L C-Reactive Protein High Sensitivity 18.10 H 0.00-0.50 MG/DL Total Protein 6.5 6.4-8.2 GM/DL Albumin 3.4 3.2-4.5 GM/DL Serum Test, Qualitative NEGATIVE NEGATIVE Urine Color YELLOW Urine Clarity CLOUDY Urine pH 7.5 5-9 Urine Specific Newcomb 1.010 L 1.016-1.022 Urine Protein NEGATIVE NEGATIVE Urine Glucose (UA) NEGATIVE NEGATIVE Urine Ketones NEGATIVE NEGATIVE Urine Nitrite NEGATIVE NEGATIVE Urine Bilirubin NEGATIVE NEGATIVE Urine Urobilinogen 0.2 < = 1.0 MG/DL Urine Leukocyte Esterase 1+ H NEGATIVE Urine RBC (Auto) NEGATIVE NEGATIVE Urine RBC NONE /HPF Urine WBC 5-10 H /HPF Urine Squamous Epithelial Cells 2-5 /HPF Urine Crystals PRESENT H /LPF Urine Amorphous Sediment LARGE INGRID PHOSPHATE H /LPF Urine Bacteria FEW H /HPF Urine Casts NONE /LPF Urine Mucus NEGATIVE /LPF Urine Culture Indicated YES Urine Opiates Screen NEGATIVE NEGATIVE Urine Oxycodone Screen NEGATIVE NEGATIVE Urine Methadone Screen NEGATIVE NEGATIVE Urine Propoxyphene Screen NEGATIVE NEGATIVE Urine Barbiturates Screen NEGATIVE NEGATIVE Ur Tricyclic Antidepressants Screen NEGATIVE NEGATIVE Urine Phencyclidine Screen NEGATIVE NEGATIVE Urine Amphetamines Screen POSITIVE H NEGATIVE Urine Methamphetamines Screen POSITIVE H NEGATIVE Urine Benzodiazepines Screen NEGATIVE NEGATIVE Urine Cocaine Screen NEGATIVE NEGATIVE Urine Cannabinoids Screen POSITIVE H NEGATIVE Lactic Acid Level 0.70 0.50-2.00 MMOL/L Procalcitonin 0.51 H <0.10 NG/ML My Orders Orders - JILL ONEILL MD Ed Iv/Invasive Line Start (08/25/21 06:25) Lactated Ringers (Lr 1000 Ml Iv Solution (08/25/21 06:30) Cbc With Automated Diff (08/25/21 06:25) Comprehensive Metabolic Panel (08/25/21 06:25) Creatine Kinase (08/25/21 06:25) Hcg,Qualitative Serum (08/25/21 06:25) Magnesium (08/25/21 06:25) Lorazepam Injection (Ativan Injection) (08/25/21 06:30) Ketorolac Injection (Toradol Injection) (08/25/21 06:30) Manual Differential (08/25/21 06:30) Hs C Reactive Protein (08/25/21 07:35) Drug Screen Stat (Urine) (08/25/21 07:35) Ua Culture If Indicated (08/25/21 07:35) Potassium Chloride (Tablet) (Klor Con Ta (08/25/21 07:45) Erythrocyte Sedimentation Rate (08/25/21 08:03) Uric Acid (08/25/21 08:03) Urine Culture (08/25/21 07:45) Blood Culture (08/25/21 08:17) Sputum Culture (08/25/21 08:17) Chest 1 View, Ap/Pa Only (08/25/21 08:17) Vital Signs Adult Sepsis Patie Q15M (08/25/21 08:17) Remove Rings In Anticipation O (08/25/21 08:17) Lactic Acid Analyzer (08/25/21 08:17) Procalcitonin (Pct) (08/25/21 08:47) Acetaminophen Tablet (Tylenol Tablet) (08/25/21 09:15) Medications Given in ED Vital Signs/I&O 08/25/21 08/25/21 08/25/21 08/25/21 09:42 10:20 10:30 10:51 Temp 36.4 Pulse 107 103 103 116 Resp 20 18 18 20 B/P (MAP) 108/73 117/71 117/71 92/50 Pulse Ox 100 100 100 94 O2 Delivery Room Air Room Air 08/25/21 08/25/21 08/25/21 11:00 12:00 16:54 Temp 35.9 Pulse 99 Resp 20 B/P (MAP) 93/57 (69) Pulse Ox 100 O2 Delivery Room Air Room Air Blood Pressure Mean: 84 Progress Progress Note : Time: 09:06 Progress Note Patient received Toradol and IV fluids for initial management. She still had notable pain after Toradol and Tylenol has been ordered. She had mild hypokalemia which was replaced orally. There is some concern about possible infectious etiology with an elevated CRP, WBC, and ESR in the context of IV drug use. Blood cultures were obtained along with lactic acid and pro calcitonin. Lactic Acid level was normal indicating normal tissue perfusion.. The etiology of her syndrome is convoluted by the substance abuse. I discussed the situation with Dr. Teixeira. We agree that the patient should be observed in the hospital to ensure she does not have worsening of condition and that this does not appear to be related to infectious etiology. He requested that we not administer antibiotics yet but monitor her closely. Patient is agreeable to this plan. Social work is being consulted to help with the substance abuse issues. There was subtle indication of pyuria on urinalysis. The urinalysis did not suggest infection severe enough to cause SIRS. Diagnostic Imaging Diagonstic Imaging: Xray Plain Films/CT/US/NM/MRI: chest Comments NAME: ROXANNE NDIAYE [facility] REC#: [id number] PT STATUS: REG ER : 1995 PHYSICIAN: JILL ONEILL MD ADMIT DATE: 08/25/21/ER Signed Date of Exam:08/25/21 CHEST 1 VIEW, AP/PA ONLY EXAMINATION: Chest, 1 view. HISTORY: Leukocytosis. COMPARISON: None available. FINDINGS: The heart size and pulmonary vasculature are normal. The lungs are clear without consolidation, pleural effusion, or pneumothorax. The osseous structures are intact. IMPRESSION: No acute radiographic abnormality in the chest. Dictated by: Dictated on workstation # [id number] Dict: 08/25/2137 Trans: 08/25/21 0846 [id number] Interpreted by: MACY GARCIA DO Electronically signed by: MACY GARCIA DO 08/25/21 0846 Reviewed: Reviewed by Me Departure Communication (Admissions) Time/Spoke to Admitting Phy: 08:50 Dr. Teixeira Impression Primary Impression: SIRS (systemic inflammatory response syndrome) Additional Impressions: Methamphetamine abuse Polyarthralgia Pyuria Disposition: ADMITTED INPATIENT Condition: Improved Admissions Decision to Admit Reason: Admit from ER (General) Decision to Admit/Date: Aug 25, 2021 Time/Decision to Admit Time: 08:15 Departure-Patient Inst. Referrals: NO,LOCAL PHYSICIAN (PCP/Family) Primary Care Physician Scripts No Active Prescriptions or Reported Meds JILL ONEILL MD Aug 25, 2021 07:10
[2021-08-25 07:13] LABS: MAGNESIUM 1.8 MG/DL (1.6-2.4)
[2021-08-25 07:16] LABS: EOSINOPHILS % (MANUAL) 1 %; LYMPHOCYTES % (MANUAL) 6 %; MONOCYTES % (MANUAL) 4 %; NEUTROPHILS % (MANUAL) 89 %; RBC MORPH NORMAL
[2021-08-25] MEDS ORDERED: KCL 10 MEQ TAB (MICRO K) PO ONE (07:45)
[2021-08-25 08:02] LABS: BILIRUBIN,URINE NEGATIVE (NEGATIVE); CLARITY,URINE CLOUDY; COLOR,URINE YELLOW; GLUCOSE, URINE (UA) NEGATIVE (NEGATIVE); KETONES,URINE NEGATIVE (NEGATIVE); LEUKOCYTE ESTERASE ,URINE 1+ (NEGATIVE); NITRITE,URINE NEGATIVE (NEGATIVE); PH,URINE 7.5 (5-9); PROTEIN,URINE NEGATIVE (NEGATIVE)
[2021-08-25 08:15] LABS: AMORPHOUS SEDIMENT,UR LARGE AMOR PHOSPHATE /LPF; BACTERIA,URINE FEW /HPF
[2021-08-25 08:17] LABS: AMPHETAMINE SCREEN, URINE POSITIVE (NEGATIVE); BARBITURATE SCREEN URINE NEGATIVE (NEGATIVE); BENZODIAZEPINES SCREEN URINE NEGATIVE (NEGATIVE); CANNABINOID SCREEN, URINE POSITIVE (NEGATIVE); COCAINE SCREEN URINE NEGATIVE (NEGATIVE); METHADONE STAT NEGATIVE (NEGATIVE); METHAMPHETAMINE SCREEN URINE S POSITIVE (NEGATIVE); OPIATE SCREEN URINE NEGATIVE (NEGATIVE); OXYCODONE STAT NEGATIVE (NEGATIVE); PROPOXYPHENE STAT NEGATIVE (NEGATIVE); TRICYCLIC ANTIDEPRESSANTS SCRE NEGATIVE (NEGATIVE)
[2021-08-25] MEDS ORDERED: cefTRIAXone 1 GM PRE-MIX 50 ML IV STA (08:17)
--- NOTE | 2021-08-25 08:39 | Diagnostic Imaging Report ---
EXAMINATION: Chest, 1 view. HISTORY: Leukocytosis. COMPARISON: None available. FINDINGS: The heart size and pulmonary vasculature are normal. The lungs are clear without consolidation, pleural effusion, or pneumothorax. The osseous structures are intact. IMPRESSION: No acute radiographic abnormality in the chest. Dictated by: Dictated on workstation # [id number]
[2021-08-25] MEDS ORDERED: ACETAMINOPHEN 500 MG TAB (TYLENOL) PO ONE (09:15)
[2021-08-25] MEDS ORDERED: LACTATED RINGERS 1,000 ML IV SCH (11:00)
[2021-08-25] MEDS ORDERED: IBUPROFEN 600 MG (MOTRIN) TAB PO PRN (11:00)
[2021-08-25] MEDS ORDERED: ACETAMINOPHEN 500 MG TAB (TYLENOL) PO PRN (11:15)
[2021-08-25] MEDS ORDERED: ONDANSETRON 4 MG/2 ML (SDV) Z0FRAN IVP PRN (11:15)
[2021-08-25 12:00] VITALS: BP 93/57
--- NOTE | 2021-08-25 12:04 | History & Physical-Hospitalist ---
ALE JOEL 08/25/21 1204: History of Present Illness HPI/Chief Complaint The patient is a 26 YO female with a history of polysubstance abuse, endome triosis, ovarian cysts, cystectomy, appendectomy, and s/p "bowel surgery", who is admitted for joint pains and muscle cramping. The patient reports that these pains started two days ago in when waking from sleep in the morning. The patient reports that the pain initially was felt in the lower back and R hip. She then started to have pain in both wrists, her left knee and L shoulder. She describes the pain as shooting and constant. Pain reported as 8/10 with movement, and 4- 5/10 when still. Hot baths or showers makes the joint pain worse. She has a Hx of IV methamphetamine use and last injection was 2 days ago, with injection site at R calf. PT denies fevers, chills or sweats. She denies nausea or vomiting. No photophobia or neck stiffness. Date Seen 08/25/21 Time Seen by a Provider: 11:45 Attending Physician Jillian Huddleston MD PCP No,Local Physician Referring Physician Date of Admission Aug 25, 2021 at 09:02 Home Medications & Allergies Home Medications Reviewed patient Home Medication Reconciliation performed by pharmacy medication reconciliations senior radiation protection technician and/or nursing. Patients Allergies have been reviewed. Allergies Allergies Coded Allergies No Known Drug Allergies (Unverified02/24/09) Past Levqdtq-Cqsqwd-Cesycf Hx Patient Social History Tobacco Use?: Yes Tobacco type used: Cigarettes Smoking Status: Current Everyday Smoker Use of E-Cig and/or Vaping dev: No Substance use?: Yes Substance type: Methamphetamine, Marijuana Substance frequency: Couple times a week Alcohol Use?: Yes Alcohol type: Hard Liquor Alcohol Frequency: Once in a while Pt feels they are or have been: No Immunizations Up To Date First/Initial COVID19 Vaccinat: N/A PED Vaccines UTD: Yes Current Status status: No Advance Directives: No Communicates: Verbally Primary Language: Malawian Preferred Spoken Language: Malawian Is interpretation needed?: No Past Medical History Surgeries: Appendectomy, Bowel Surgery, Cystectomy (Ovarian cyst) Anxiety, Depression Blood Disorders: No Review of Systems Constitutional: No chills, No diaphoresis, No fever, No weakness EENTM: No blurred vision, No double vision Respiratory: No cough, No short of breath Gastrointestinal: No abdominal pain, No loss of appetite Genitourinary: No dysuria, No hematuria Musculoskeletal: joint pain (L knee, bilteral wrists, L shoulder ) Skin: other (bruise located at site of last IV injection located on R calf. ) Psychiatric/Neurological: Headache (2 days ago ), Numbness (when hands cramp ), Other (moderate agitation ) Physical Exam Physical Exam Vital Signs Vital Signs - First Documented 08/25/21 06:10 Temp 36.7 Pulse 106 Resp 16 B/P (MAP) 108/72 (84) Pulse Ox 100 O2 Delivery Room Air Capillary Refill : Less Than 3 Seconds Height, Weight, BMI Height: 5'2.00" Weight: 200lbs. oz. 90.425019bb; 24.00 BMI Method:Stated General Appearance: WD/WN, Mild Distress, Other (moderate agitation ) Eyes: Bilateral Eye Normal Inspection, Bilateral Eye PERRL, Bilateral Eye EOMI HEENT: PERRL/EOMI, Pharynx Normal, Moist Mucous Membranes Respiratory: Chest Non Tender, Lungs Clear, Normal Breath Sounds, No Accessory Muscle Use, No Respiratory Distress Cardiovascular: No Edema, No Murmur, Tachycardia Gastrointestinal: Normal Bowel Sounds, No Organomegaly, No Pulsatile Mass, Non Tender, Soft Extremity: No Calf Tenderness, No Pedal Edema, Other (Pain on L wrist palpation, pain on passive movement of L and R wrist. Pain with active movement of L knee. ) Neurologic/Psychiatric: Alert, Oriented x3, No Motor/Sensory Deficits Skin: Normal Color, Warm/Dry Results Results/Procedures Labs Laboratory Tests 08/25/21 06:30 Patient resulted labs reviewed. Assessment/Plan Assessment and Plan 26 YO female admitted for arthralgias and muscle crams, with a history of polysubstance abuse, endometriosis, ovarian cysts arthralgias muscle cramps polysubstance abuse Meeting SIRs, possibly secondary to drug intoxication. No identifiable source of infection currently. Waiting on blood cultures. Tylenol for pain control. Endometriosis Ovarian cysts No acute management at this time. JILLIAN HUDDLESTON MD 08/25/21 1321: History of Present Illness Source: patient Exam Limitations: no limitations Time Seen by a Provider: 13:00 Past Jvvobkt-Sghece-Vjhzvl Hx Patient Social History Substance use?: Yes Substance type: Methamphetamine Family Medical History No Pertinent Family Hx Physical Exam Physical Exam Extremity: Other (Pain on L wrist palpation, pain on passive movement of L and R wrist. Pain with active movement of L knee. ) Assessment/Plan Admission Diagnosis Acute methamphetamine intoxication Admission Status: Observation Assessment and Plan Admitted with acute methamphetamine intoxication. Having arthralgias and meeting SIRS criteria without evidence of acute infection. Monitor closely. Diagnosis/Problems Diagnosis/Problems (1) Methamphetamine intoxication Status: Acute (2) Arthralgia of multiple sites Status: Acute (3) IV drug abuse Status: Acute (4) SIRS (systemic inflammatory response syndrome) Status: Acute Supervisory-Addendum Brief Verification & Attestation Participated in pt care: history, MDM, physical Personally performed: exam, history, MDM, supervision of care Care discussed with: Medical Student Procedures: n/a Results interpretation: Verified all documentation A medical student performed and documented this service in my presence. I rev iewed and verified all information documented by the medical student and made modifications to such information, when appropriate. I personally performed the physical exam and medical decision making. ALE JOEL Aug 25, 2021 12:04 JILLIAN HUDDLESTON MD Aug 25, 2021 13:21
[2021-08-25] MEDS ORDERED: KETOROLAC 15 MG/ML VIAL IVP PRN (15:15)
[2021-08-26] MEDS ORDERED: CEPH500T PO (12:07)
== END 2021-08-25 16:40 | disposition left against medical advice (07) ==
LOC: EDUNIT# 05:33 → ER 05:37 → 4TH 09:02
PROVIDERS: ADMIT Internal Medicine; ATTEND Internal Medicine
DX: M26.629 Arthralgia of temporomandibular joint, unspecified side (principal); N80.9 Endometriosis, unspecified; N83.201 Unspecified ovarian cyst, right side; R65.10 Systemic inflammatory response syndrome (SIRS) of non-infectious origin without acute organ dysfunction
CPT/HCPCS: 36415; 71045; 80053; 80306; 81000; 82550; 83605; 83735; 84145; 84550; 84703; 85007; 85027; 85652; 86141; 87040; 87077; 87088; 87186

== ENCOUNTER 2021-08-26 10:24 | Emergency (ER) | payer SELFPAY ==
[~2021-08-26] VITALS: Ht 154 cm; Wt 61.0 kg
[2021-08-26] MEDS ORDERED: LORazepam INJ 2 MG/ML (ATIVAN) VIAL IVP ONE (10:30)
--- NOTE | 2021-08-26 10:34 | ED General ---
General Stated Complaint: ANXIETY Source of Information: EMS Exam Limitations: No Limitations (JOCELYNN HOWARD APRN) History of Present Illness Date Seen by Provider: Aug 26, 2021 Time Seen by Provider: 10:32 Initial Comments To ER by EMS from home after she called them with reports of bilateral hands cramping. She is hyperventilating on arrival. She is writhing unable to sit still moaning and screaming at us. She was here yesterday for the same admitted upstairs and left AGAINST MEDICAL ADVICE a short while thereafter.. She denies any methamphetamine use today states that last use was 3 days ago Timing/Duration: 1-2 Days Severity: Moderate Associated Systoms: Denies Symptoms (JOCELYNN HOWARD APRN) Allergies and Home Medications Allergies Coded Allergies: No Known Drug Allergies (Unverified , 02/24/09) Patient Home Medication List Home Medication List Reviewed: Yes (JOCELYNN HOWARD APRN) Cephalexin (Cephalexin) 500 Mg Tablet, 500 MG PO QID Prescribed by: JOCELYNN HOWARD on 08/26/21 1207 Discontinued Medications Hydrocodone/Acetaminophen (Hydrocodone-Acetamin 5-325 mg) 1 Each Tablet, 1-2 EACH PO Q4H PRN for PAIN-BREAKTHROUGH Discontinued Reason: No Longer Taking Prescribed by: JILL BERMEO on 08/08/20 1228 Review of Systems Review of Systems Constitutional: see HPI EENTM: see HPI Respiratory: no symptoms reported Cardiovascular: no symptoms reported Genitourinary: no symptoms reported Musculoskeletal: no symptoms reported Skin: no symptoms reported Psychiatric/Neurological: See HPI, Anxiety (JOCELYNN HOWARD APRN) Past Afriltv-Ncmrkk-Xgdlzp Hx Immunizations Up To Date PED Vaccines UTD: Yes First/Initial COVID19 Vaccinat: N/A (JOCELYNN HOWARD APRN) Past Medical History Surgeries: Yes (WISDOM TEETH REMOVED, laparoscopy) Appendectomy, Bowel Surgery, Cystectomy Respiratory: No Cardiac: No Neurological: No Reproductive Disorders: Yes (BILATERAL ADENEXAL MASS) Female Reproductive Disorders: Menstrual Problems, Endometriosis, Ovarian Cyst Gastrointestinal: No Musculoskeletal: No Endocrine: No Cancer: No Psychosocial: Yes (Polysubstance abuse) Anxiety, Depression Integumentary: No Blood Disorders: No (JOCELYNN HOWARD APRN) Family Medical History No Pertinent Family Hx (JOCELYNN HOWARD APRN) Physical Exam Vital Signs Vital Signs - First Documented 08/26/21 10:24 Temp 36.3 Pulse 93 Resp 16 B/P (MAP) 106/43 (64) Pulse Ox 100 O2 Delivery Room Air (AINSLEY LI DO) Vital Signs Capillary Refill : (JOCELYNN HOWARD APRN) Height, Weight, BMI Height: 5'2.00" Weight: 200lbs. oz. 90.020353mn; 25.80 BMI Method:Stated General Appearance: No Apparent Distress, WD/WN, Other (Writhing, moaning, unable to sit still. Despite her report that she has not used meth in 3 days she appears acutely intoxicated on methamphetamine or stimulant with dystonic reactions and severe anxiety.) Eyes: Bilateral Eye Normal Inspection, Bilateral Eye PERRL, Bilateral Eye EOMI Respiratory: No Accessory Muscle Use, No Respiratory Distress Cardiovascular: Normal Peripheral Pulses Gastrointestinal: Normal Bowel Sounds, Non Tender, Soft Extremity: Normal Capillary Refill, Normal Inspection, Other (Edema bilateral hands and wrists) Neurologic/Psychiatric: Alert, Oriented x3 Skin: Normal Color, Warm/Dry (JOCELYNN HOWARD APRN) Progress/Results/Core Measures Suspected Sepsis SIRS Temperature: Pulse: Respiratory Rate: Laboratory Tests 08/26/21 10:36: White Blood Count 22.9H Blood Pressure / Mean: Laboratory Tests 08/26/21 10:36: Creatinine 0.70, Platelet Count 227, Total Bilirubin 0.7 (JOCELYNN HOWARD APRN) Results/Orders Lab Results Laboratory Tests Test 08/26/21 10:36 08/26/21 11:26 Range/Units White Blood Count 22.9 H 4.3-11.0 10^3/uL Red Blood Count 4.41 3.80-5.11 10^6/uL Hemoglobin 12.3 11.5-16.0 g/dL Hematocrit 38 35-52 % Mean Corpuscular Volume 86 80-99 fL Mean Corpuscular Hemoglobin 28 25-34 pg Mean Corpuscular Hemoglobin Concent 33 32-36 g/dL Red Cell Distribution Width 14.2 10.0-14.5 % Platelet Count 227 130-400 10^3/uL Mean Platelet Volume 10.1 9.0-12.2 fL Immature Granulocyte % (Auto) 1 % Neutrophils (%) (Auto) 83 H 42-75 % Lymphocytes (%) (Auto) 8 L 12-44 % Monocytes (%) (Auto) 8 0-12 % Eosinophils (%) (Auto) 0 0-10 % Basophils (%) (Auto) 0 0-10 % Neutrophils # (Auto) 18.8 H 1.8-7.8 10^3/uL Lymphocytes # (Auto) 1.7 1.0-4.0 10^3/uL Monocytes # (Auto) 1.9 H 0.0-1.0 10^3/uL Eosinophils # (Auto) 0.0 0.0-0.3 10^3/uL Basophils # (Auto) 0.1 0.0-0.1 10^3/uL Immature Granulocyte # (Auto) 0.2 H 0.0-0.1 10^3/uL Neutrophils % (Manual) 86 % Lymphocytes % (Manual) 9 % Monocytes % (Manual) 2 % Eosinophils % (Manual) 0 % Basophils % (Manual) 0 % Band Neutrophils 3 % Blood Morphology Comment NORMAL Sodium Level 137 135-145 MMOL/L Potassium Level 3.1 L 3.6-5.0 MMOL/L Chloride Level 104 98-107 MMOL/L Carbon Dioxide Level 18 L 21-32 MMOL/L Anion Gap 15 H 5-14 MMOL/L Blood Urea Nitrogen 9 7-18 MG/DL Creatinine 0.70 0.60-1.30 MG/DL Estimat Glomerular Filtration Rate 101 BUN/Creatinine Ratio 13 Glucose Level 97 70-105 MG/DL Calcium Level 8.8 8.5-10.1 MG/DL Corrected Calcium 9.4 8.5-10.1 MG/DL Total Bilirubin 0.7 0.1-1.0 MG/DL Aspartate Amino Transf (AST/SGOT) 18 5-34 U/L Alanine Aminotransferase (ALT/SGPT) 12 0-55 U/L Alkaline Phosphatase 78 40-136 U/L Total Creatine Kinase 28 L 29-168 U/L Total Protein 6.5 6.4-8.2 GM/DL Albumin 3.3 3.2-4.5 GM/DL Procalcitonin 0.74 H <0.10 NG/ML Serum Alcohol < 10 <10 MG/DL Urine Color YELLOW Urine Clarity CLEAR Urine pH 8.5 5-9 Urine Specific [place] 1.010 L 1.016-1.022 Urine Protein TRACE H NEGATIVE Urine Glucose (UA) NEGATIVE NEGATIVE Urine Ketones NEGATIVE NEGATIVE Urine Nitrite NEGATIVE NEGATIVE Urine Bilirubin NEGATIVE NEGATIVE Urine Urobilinogen 0.2 < = 1.0 MG/DL Urine Leukocyte Esterase NEGATIVE NEGATIVE Urine RBC (Auto) NEGATIVE NEGATIVE Urine RBC RARE /HPF Urine WBC 2-5 /HPF Urine Squamous Epithelial Cells 2-5 /HPF Urine Crystals NONE /LPF Urine Bacteria FEW H /HPF Urine Casts NONE /LPF Urine Mucus NEGATIVE /LPF Urine Culture Indicated YES Urine Opiates Screen NEGATIVE NEGATIVE Urine Oxycodone Screen NEGATIVE NEGATIVE Urine Methadone Screen NEGATIVE NEGATIVE Urine Propoxyphene Screen NEGATIVE NEGATIVE Urine Barbiturates Screen NEGATIVE NEGATIVE Ur Tricyclic Antidepressants Screen NEGATIVE NEGATIVE Urine Phencyclidine Screen NEGATIVE NEGATIVE Urine Amphetamines Screen POSITIVE H NEGATIVE Urine Methamphetamines Screen POSITIVE H NEGATIVE Urine Benzodiazepines Screen POSITIVE H NEGATIVE Urine Cocaine Screen NEGATIVE NEGATIVE Urine Cannabinoids Screen POSITIVE H NEGATIVE (AINSLEY LI DO) Medications Given in ED Current Medications Medications Dose Ordered Sig/[place] Route Start Time Stop Time Status Last Admin Dose Admin Lorazepam 2 mg ONCE ONCE IVP 08/26/21 10:30 08/26/21 10:31 DC 08/26/21 10:40 2 MG (AINSLEY LI DO) Vital Signs/I&O 08/26/21 08/26/21 10:24 12:18 Temp 36.3 Pulse 93 68 Resp 16 16 B/P (MAP) 106/43 (64) 106/67 Pulse Ox 100 97 O2 Delivery Room Air Room Air (AINSLEY LI DO) Vital Signs/I&O Capillary Refill : (JOCELYNN HOWARD APRN) Departure Communication (Admissions) 1119-after 2 mg of IV lorazepam she is still very much alert, sitting upright in bed on a conference call on her phone with several family members, very talkative. No longer having dystonic movements 1209-she informs us that she is feeling a lot better and would like to leave now. I discussed with her that there could be underlying infection given the leukocytosis. However this could simply be related to methamphetamine use and dehydration. She denies any fevers or chills. I did discuss with her the need to take oral antibiotics until the cultures that were drawn yesterday are resulted. She should come back for any worsening symptoms. She is now calm and pleasant and appreciative. (JOCELYNN HOWARD APRN) Impression Primary Impression: Methamphetamine intoxication Additional Impression: Anxiety Disposition: 01 HOME, SELF-CARE Condition: Improved Departure-Patient Inst. Decision time for Depature: 12:06 (JOCELYNN HOWARD APRN) Referrals: NO,LOCAL PHYSICIAN (PCP) Primary Care Physician Patient Instructions: NO INSTRUCTIONS GIVEN Add. Discharge Instructions: It goes without saying that your symptoms today are related to the methamphetamine use. Take the antibiotics as directed as your white blood cells were a little high and this can indicate infection. Blood cultures are pending from yesterday. Return to ER for any fevers or other concerns. Scripts Cephalexin (Cephalexin) 500 Mg Tablet 500 MG PO QID, #28 TAB Prov: JOCELYNN HOWARD APRN 08/26/21 ATTENDING PHYSICIAN NOTE: I WAS PHYSICALLY PRESENT ER PHYSICIAN WHEN THIS PATIENT WAS IN ER, BUT I WAS NOT INVOLVED IN ANY DECISION MAKING OR ANY CARE OF THIS PATIENT. (AINSLEY LI DO) JOCELYNN HOWARD APRN Aug 26, 2021 10:33 AINSLEY LI DO Aug 26, 2021 12:34
[2021-08-26 10:42] LABS: BASOPHILS # (AUTO) 0.1 10^3/uL (0.0-0.1); BASOPHILS % (AUTO) 0 % (0-10); EOSINOPHILS % (AUTO) 0 % (0-10); HEMATOCRIT 38 % (35-52); HEMOGLOBIN 12.3 g/dL (11.5-16.0); LYMPHOCYTES # (AUTO) 1.7 10^3/uL (1.0-4.0); LYMPHOCYTES % (AUTO) 8 % (12-44); MEAN CORPUSCULAR HEMOGLOBIN 28 pg (25-34); MEAN CORPUSCULAR HGB CONC 33 g/dL (32-36); MEAN CORPUSCULAR VOLUME 86 fL (80-99); MEAN PLATELET VOLUME 10.1 fL (9.0-12.2); MONOCYTES # (AUTO) 1.9 10^3/uL (0.0-1.0); MONOCYTES % (AUTO) 8 % (0-12); NEUTROPHILS # (AUTO) 18.8 10^3/uL (1.8-7.8); NEUTROPHILS % (AUTO) 83 % (42-75); PLATELET COUNT 227 10^3/uL (130-400); WHITE BLOOD COUNT 22.9 10^3/uL (4.3-11.0)
[2021-08-26 11:00] LABS: ALBUMIN 3.3 GM/DL (3.2-4.5); CHLORIDE 104 MMOL/L (98-107); POTASSIUM 3.1 MMOL/L (3.6-5.0); SODIUM 137 MMOL/L (135-145)
[2021-08-26 11:01] LABS: CALCIUM 8.8 MG/DL (8.5-10.1)
[2021-08-26 11:02] LABS: GLUCOSE 97 MG/DL (70-105); TOTAL PROTEIN 6.5 GM/DL (6.4-8.2)
[2021-08-26 11:03] LABS: CARBON DIOXIDE 18 MMOL/L (21-32)
[2021-08-26 11:04] LABS: BILIRUBIN,TOTAL 0.7 MG/DL (0.1-1.0)
[2021-08-26 11:06] LABS: ALKALINE PHOSPHATASE 78 U/L (40-136); GFR ESTIMATED 101
[2021-08-26 11:07] LABS: BUN/CREATININE RATIO 13
[2021-08-26 11:09] LABS: ALANINE AMINOTRANSFERASE 12 U/L (0-55); CREATINE KINASE 28 U/L (29-168)
[2021-08-26] MEDS ORDERED: LACTATED RINGERS 1,000 ML IV SCH (11:15)
[2021-08-26 11:22] LABS: BAND NEUTROPHILS 3 %; BASOPHILS % (MANUAL) 0 %; EOSINOPHILS % (MANUAL) 0 %; LYMPHOCYTES % (MANUAL) 9 %; MONOCYTES % (MANUAL) 2 %; NEUTROPHILS % (MANUAL) 86 %; RBC MORPH NORMAL
[2021-08-26 11:44] LABS: BILIRUBIN,URINE NEGATIVE (NEGATIVE); CLARITY,URINE CLEAR; COLOR,URINE YELLOW; GLUCOSE, URINE (UA) NEGATIVE (NEGATIVE); KETONES,URINE NEGATIVE (NEGATIVE); LEUKOCYTE ESTERASE ,URINE NEGATIVE (NEGATIVE); NITRITE,URINE NEGATIVE (NEGATIVE); PH,URINE 8.5 (5-9); PROTEIN,URINE TRACE (NEGATIVE)
[2021-08-26 11:57] LABS: AMPHETAMINE SCREEN, URINE POSITIVE (NEGATIVE); BARBITURATE SCREEN URINE NEGATIVE (NEGATIVE); BENZODIAZEPINES SCREEN URINE POSITIVE (NEGATIVE); CANNABINOID SCREEN, URINE POSITIVE (NEGATIVE); COCAINE SCREEN URINE NEGATIVE (NEGATIVE); METHADONE STAT NEGATIVE (NEGATIVE); METHAMPHETAMINE SCREEN URINE S POSITIVE (NEGATIVE); OPIATE SCREEN URINE NEGATIVE (NEGATIVE); OXYCODONE STAT NEGATIVE (NEGATIVE); PROPOXYPHENE STAT NEGATIVE (NEGATIVE); TRICYCLIC ANTIDEPRESSANTS SCRE NEGATIVE (NEGATIVE)
[2021-08-26] MEDS ORDERED: CEPH500T PO (12:07)
[2021-08-26 12:13] LABS: BACTERIA,URINE FEW /HPF; RBC,URINE RARE /HPF
[2021-08-26 12:18] VITALS: BP 106/67
== END 2021-08-26 12:18 | disposition home or self-care (01) ==
LOC: EDUNIT# 10:24 → ER 10:26
DX: F15.129 Other stimulant abuse with intoxication, unspecified (principal); F41.9 Anxiety disorder, unspecified
CPT/HCPCS: 80053; 80306; 81000; 82550; 84145; 85007; 85027; 87077; 87088; 87186; 99284; G0480; 36415; 80320

== ENCOUNTER 2021-08-31 10:21 | Emergency (ER) | payer SELFPAY ==
[~2021-08-31] VITALS: Ht 154 cm; Wt 61.0 kg
[~2021-08-31 10:21] MED LIST changes: +CEPH500T PO
--- NOTE | 2021-08-31 10:46 | ED Upper Extremity ---
General Chief Complaint: Upper Extremity Stated Complaint: BI LAT HAND SWELLING/INFECTION SEEN 08/26 Nursing Triage Note: PT AMB TO [facility] 3 WITH COMPLAINT OF BILATERAL JOINT PAIN, SWELLING TO BILATERAL WRISTS/HANDS. PT HAS BEEN SEEN MULTIPLE TIMES IN ER FOR CURRENT COMPLAINT, BUT LEFT AMA. STATES HAS BEEN TAKING HER ANTIBIOITCS. Source: patient Exam Limitations: no limitations (JOCELYNN HOWARD APRN) History of Present Illness Date Seen by Provider: Aug 31, 2021 Time Seen by Provider: 10:46 Initial Comments To ER with bilateral hand swelling. She has been seen 3 times for this with this being the third time. She has been taking antibiotic that I prescribed last time. Her blood cultures were negative from her first visit. The redness today is gone which was present a few days ago when I saw her. The edema is improved but still present. She has not injected into the wrists or forearms for about a week now. She also appears much more calm than she did during her last visit. She denies fevers or chills and overall feels okay she says. Onset: last week Severity: moderate Method of Injury: unknown Modifying Factors: Worse With Movement (JOCELYNN HOWARD APRN) Allergies and Home Medications Allergies Coded Allergies: No Known Drug Allergies (Unverified , 02/24/09) Patient Home Medication List Home Medication List Reviewed: Yes (JOCELYNN HOWARD APRN) Cephalexin (Cephalexin) 500 Mg Tablet, 500 MG PO QID Prescribed by: JOCELYNN HOWARD on 08/26/21 1207 Review of Systems Constitutional: see HPI; No chills, No fever EENTM: see HPI Respiratory: no symptoms reported Cardiovascular: no symptoms reported Genitourinary: no symptoms reported Musculoskeletal: see HPI Skin: no symptoms reported Psychiatric/Neurological: No Symptoms Reported (JOCELYNN HOWARD APRN) Past Suwtlvu-Uheytq-Oltkhb Hx Patient Social History Tobacco Use?: Yes Tobacco type used: Cigarettes Smoking Status: Current Everyday Smoker Use of E-Cig and/or Vaping dev: No Substance use?: Yes Substance type: Methamphetamine Alcohol Use?: Unable to obtain Pt feels they are or have been: No (JOCELYNN HOWARD APRN) Immunizations Up To Date PED Vaccines UTD: Yes Influenza Vaccine Up-to-Date: No; Not Current First/Initial COVID19 Vaccinat: N/A Second COVID19 Vaccination Elvis: N/A Third COVID19 Vaccination Date: N/A (JOCELYNN HOWARD APRN) Past Medical History Surgeries: Yes (WISDOM TEETH REMOVED, laparoscopy) Appendectomy, Bowel Surgery, Cystectomy Respiratory: No Cardiac: No Neurological: No Reproductive Disorders: Yes (BILATERAL ADENEXAL MASS) Female Reproductive Disorders: Menstrual Problems, Endometriosis, Ovarian Cyst Gastrointestinal: No Musculoskeletal: No Endocrine: No Cancer: No Psychosocial: Yes (Polysubstance abuse) Anxiety, Depression Integumentary: No Blood Disorders: No (JOCELYNN HOWARD APRN) Family Medical History No Pertinent Family Hx (JOCELYNN HOWARD APRN) Physical Exam Vital Signs Vital Signs - First Documented 08/31/21 10:34 Temp 36.4 Pulse 109 Resp 22 B/P (MAP) 131/91 (104) Pulse Ox 99 O2 Delivery Room Air (JILL ONEILL MD) Vital Signs Capillary Refill : Less Than 3 Seconds (JOCELYNN HOWARD APRN) Height, Weight, BMI Height: 5'2.00" Weight: 200lbs. oz. 90.798414hs; 25.00 BMI Method:Stated General Appearance: WD/WN, no apparent distress, other (Calm and pleasant today) HEENT: PERRL/EOMI, normal ENT inspection Neck: non-tender, full range of motion Respiratory: no respiratory distress, no accessory muscle use Gastrointestinal: normal bowel sounds Shoulder: normal inspection, non-tender Wrist: Yes normal inspection, Yes non-tender Hand: Bilateral, swelling Neurologic/Psychiatric: alert, normal mood/affect, oriented x 3 Skin: normal color, warm/dry, other (She has some edema bilateral forearms at the distal forearm extending into the hand. There is no erythema or open wound.) (JOCELYNN HOWARD APRN) Progress/Results/Core Measures Results/Orders Lab Results Laboratory Tests Test 08/31/21 11:00 Range/Units White Blood Count 15.2 H 4.3-11.0 10^3/uL Red Blood Count 4.35 3.80-5.11 10^6/uL Hemoglobin 11.9 11.5-16.0 g/dL Hematocrit 37 35-52 % Mean Corpuscular Volume 86 80-99 fL Mean Corpuscular Hemoglobin 27 25-34 pg Mean Corpuscular Hemoglobin Concent 32 32-36 g/dL Red Cell Distribution Width 14.7 H 10.0-14.5 % Platelet Count 410 H 130-400 10^3/uL Mean Platelet Volume 9.0 9.0-12.2 fL Immature Granulocyte % (Auto) 4 % Neutrophils (%) (Auto) 71 42-75 % Lymphocytes (%) (Auto) 17 12-44 % Monocytes (%) (Auto) 6 0-12 % Eosinophils (%) (Auto) 2 0-10 % Basophils (%) (Auto) 1 0-10 % Neutrophils # (Auto) 10.9 H 1.8-7.8 10^3/uL Lymphocytes # (Auto) 2.6 1.0-4.0 10^3/uL Monocytes # (Auto) 0.8 0.0-1.0 10^3/uL Eosinophils # (Auto) 0.3 0.0-0.3 10^3/uL Basophils # (Auto) 0.1 0.0-0.1 10^3/uL Immature Granulocyte # (Auto) 0.6 H 0.0-0.1 10^3/uL Sodium Level 137 135-145 MMOL/L Potassium Level 4.7 3.6-5.0 MMOL/L Chloride Level 102 98-107 MMOL/L Carbon Dioxide Level 25 21-32 MMOL/L Anion Gap 10 5-14 MMOL/L Blood Urea Nitrogen 19 H 7-18 MG/DL Creatinine 0.70 0.60-1.30 MG/DL Estimat Glomerular Filtration Rate 101 BUN/Creatinine Ratio 27 Glucose Level 95 70-105 MG/DL Calcium Level 9.7 8.5-10.1 MG/DL Corrected Calcium 10.2 H 8.5-10.1 MG/DL Total Bilirubin 0.1 0.1-1.0 MG/DL Aspartate Amino Transf (AST/SGOT) 20 5-34 U/L Alanine Aminotransferase (ALT/SGPT) 18 0-55 U/L Alkaline Phosphatase 96 40-136 U/L C-Reactive Protein High Sensitivity 11.95 H 0.00-0.50 MG/DL Total Protein 7.5 6.4-8.2 GM/DL Albumin 3.4 3.2-4.5 GM/DL Thyroid Stimulating Hormone (TSH) 1.04 0.35-4.94 UIU/ML Free Thyroxine 0.84 0.70-1.48 NG/DL Serum Test, Qualitative NEGATIVE NEGATIVE (JILL ONEILL MD) Blood Pressure Mean: 104 Departure Impression Primary Impression: Edema of both upper extremities Disposition: 01 HOME, SELF-CARE Condition: Stable Departure-Patient Inst. Decision time for Depature: 12:00 (JOCELYNN HOWARD APRN) Referrals: NO,LOCAL PHYSICIAN (PCP/Family) Primary Care Physician Patient Instructions: Swelling Add. Discharge Instructions: 1. Elevate both hands is much as possible. Follow-up with [facility] this week. Call today [phone] to make an appointment to be seen. All discharge instructions reviewed with patient and/or family. Voiced understanding. ATTENDING PHYSICIAN NOTE: I was physically present as attending physician in the emergency department during the care of this patient, but I was not directly involved in the decision making or delivery of care for this patient. (JILL ONEILL MD) JOCELYNN HOWARD APRN Aug 31, 2021 10:46 JILL ONEILL MD Sep 02, 2021 09:05
[2021-08-31 11:16] LABS: BASOPHILS # (AUTO) 0.1 10^3/uL (0.0-0.1); BASOPHILS % (AUTO) 1 % (0-10); EOSINOPHILS # (AUTO) 0.3 10^3/uL (0.0-0.3); EOSINOPHILS % (AUTO) 2 % (0-10); HEMATOCRIT 37 % (35-52); HEMOGLOBIN 11.9 g/dL (11.5-16.0); LYMPHOCYTES # (AUTO) 2.6 10^3/uL (1.0-4.0); LYMPHOCYTES % (AUTO) 17 % (12-44); MEAN CORPUSCULAR HEMOGLOBIN 27 pg (25-34); MEAN CORPUSCULAR HGB CONC 32 g/dL (32-36); MEAN CORPUSCULAR VOLUME 86 fL (80-99); MONOCYTES # (AUTO) 0.8 10^3/uL (0.0-1.0); MONOCYTES % (AUTO) 6 % (0-12); NEUTROPHILS # (AUTO) 10.9 10^3/uL (1.8-7.8); NEUTROPHILS % (AUTO) 71 % (42-75); PLATELET COUNT 410 10^3/uL (130-400); WHITE BLOOD COUNT 15.2 10^3/uL (4.3-11.0)
[2021-08-31 11:48] LABS: ALBUMIN 3.4 GM/DL (3.2-4.5); POTASSIUM 4.7 MMOL/L (3.6-5.0)
[2021-08-31 11:49] LABS: CALCIUM 9.7 MG/DL (8.5-10.1)
[2021-08-31 11:51] LABS: TOTAL PROTEIN 7.5 GM/DL (6.4-8.2)
[2021-08-31 11:52] LABS: BILIRUBIN,TOTAL 0.1 MG/DL (0.1-1.0)
[2021-08-31 11:54] LABS: CREATININE SERUM 0.7 MG/DL (0.60-1.30)
[2021-08-31 12:18] LABS: FREE T4 (FREE THYROXINE) 0.84 NG/DL (0.70-1.48)
[2021-08-31 12:20] VITALS: BP 131/91
== END 2021-08-31 12:20 | disposition home or self-care (01) ==
LOC: EDUNIT# 10:21 → ER 10:24
DX: R60.9 Edema, unspecified (principal); F17.210 Nicotine dependence, cigarettes, uncomplicated
CPT/HCPCS: 36415; 80053; 84439; 84443; 84703; 85025; 86141

== ENCOUNTER 2022-06-22 16:45 | Emergency (ER) | payer SELFPAY ==
[~2022-06-22] VITALS: Ht 160 cm; Wt 62.4 kg
[2022-06-22 17:16] LABS: BILIRUBIN,URINE NEGATIVE (NEGATIVE); CLARITY,URINE CLEAR; COLOR,URINE YELLOW; GLUCOSE, URINE (UA) NEGATIVE (NEGATIVE); KETONES,URINE NEGATIVE (NEGATIVE); LEUKOCYTE ESTERASE ,URINE TRACE (NEGATIVE); NITRITE,URINE NEGATIVE (NEGATIVE); PH,URINE 8.5 (5-9); PROTEIN,URINE 1+ (NEGATIVE)
[2022-06-22 17:39] LABS: BACTERIA,URINE TRACE /HPF
--- NOTE | 2022-06-22 17:53 | ED Abdominal Pain ---
General Chief Complaint: Abdominal/GI Problems Stated Complaint: UPPER ABD PAIN Nursing Triage Note: SENT OUT FROM [facility] WITH ABD PAIN X5 DAYS. Source of Information: Patient Exam Limitations: No Limitations (CEE SHAW MD) History of Present Illness Date Seen by Provider: Jun 22, 2022 Time Seen by Provider: 17:45 Initial Comments Patient is a 27-year-old female who presents to the emergency department with a chief complaint of sharp stabbing upper abdominal pain for the last week. Patient states the pain has been worsening steadily to a "10 out of 10". She states laying on her side mostly the right side makes her feel a little bit better. She states she has pain with deep inspiration. She last took some Tylenol last night without any relief. She is also been taking ibuprofen. Her last menstrual cycle was approximately 10 days ago. She is regular but has a history of endometriosis. She has not had a urinary tract infection in about 10 years but denies dysuria, urgency or frequency. She has had a mild headache with some nausea no vomiting. She denies fevers or chills. No radiation of the pain to the back or shoulder blades. She denies black or bloody stools. Her last bowel movement was about 4 days ago. No abnormal vaginal discharge. History of appendectomy when they were looking at ovaries for her endometriosis. She denies heavy alcohol use. She does smoke cigarettes. She admits to THC and mushroom use about a week ago. All other review of systems reviewed and negative except as stated Timing/Duration: 1 Week Severity/Quality: Sharp, Stabbing Location: RUQ, LUQ Radiation: No Radiation Activities at Onset: None Modifying Factors: Improves With Lying down (laying on right side) Associated Symptoms: Nausea/Vomiting (nausea without vomiting) (CEE DONAHUE MD) Allergies and Home Medications Allergies Coded Allergies: No Known Drug Allergies (Unverified , 02/24/09) Patient Home Medication List Home Medication List Reviewed: Yes (CEE SHAW MD) Dicyclomine HCl (Dicyclomine HCl) 20 Mg Tablet, 20 MG PO Q6H Prescribed by: AINSLEY NARVAEZ on 06/22/222010 Hyoscyamine Sulfate (Levsin-Sl) 0.125 Mg Tab.subl, 0.25 MG SL Q4H Prescribed by: AINSLEY NARVAEZ on 06/22/222010 Nitrofurantoin Monohyd/M-Cryst (Macrobid 100 mg Capsule) 100 Mg Capsule, 1 TAB PO BID Prescribed by: AINSLEY NARVAEZ on 06/22/222010 Ondansetron (Ondansetron Odt) 8 Mg Tab.rapdis, 8 MG PO Q4H PRN for NAUSEA/VOMITING Prescribed by: AINSLEY NARVAEZ on 06/22/222010 Pantoprazole Sodium (Protonix) 40 Mg Tablet.dr, 40 MG PO DAILY Prescribed by: AINSLEY NARVAEZ on 06/22/222010 Discontinued Medications Cephalexin (Cephalexin) 500 Mg Tablet, 500 MG PO QID Discontinued Reason: No Longer Taking Prescribed by: JOCELYNN HOWARD on 08/26/21 1207 Last Action: Discontinued Review of Systems Review of Systems Constitutional: see HPI EENTM: No Symptoms Reported Respiratory: Other (pain in the chest with deep breath) Gastrointestinal: Abdominal Pain, Nausea, Poor Appetite Genitourinary: Other (urine is "orange") Musculoskeletal: no symptoms reported Skin: no symptoms reported Psychiatric/Neurological: Headache (mild) (CEE SHAW MD) All Other Systems Reviewed Negative Unless Noted: Yes (CEE SHAW MD) Past Hmzmqxh-Naovch-Xzrltk Hx Patient Social History Tobacco Use?: Yes Smoking Status: Current Everyday Smoker Substance use?: Yes Substance type: Marijuana Additional substance use comme: LORTAB, MUSHROOMS Alcohol Use?: No (CEE SHAW MD) Immunizations Up To Date PED Vaccines UTD: Yes First/Initial COVID19 Vaccinat: N/A Second COVID19 Vaccination Elvis: N/A Third COVID19 Vaccination Date: N/A (CEE SHAW MD) Past Medical History Surgeries: Yes (WISDOM TEETH REMOVED, laparoscopy) Appendectomy, Bowel Surgery, Cystectomy Respiratory: No Cardiac: No Neurological: No Last Menstrual Period: Jun 08, 2022 Reproductive Disorders: Yes (BILATERAL ADENEXAL MASS) Female Reproductive Disorders: Menstrual Problems, Endometriosis, Ovarian Cyst Gastrointestinal: No Musculoskeletal: No Endocrine: No Cancer: No Psychosocial: Yes (Polysubstance abuse) Anxiety, Depression Integumentary: No Blood Disorders: No (CEE SHAW MD) Family Medical History No Pertinent Family Hx (CEE SHAW MD) Physical Exam Vital Signs Vital Signs - First Documented 06/22/22 16:58 Temp 36.2 Pulse 126 Resp 16 B/P (MAP) 106/75 (85) Pulse Ox 100 O2 Delivery Room Air (AINSLEY NARVAEZ Christie DO) Vital Signs Capillary Refill : Less Than 3 Seconds (CEE SHAW MD) Height/Weight/BMI Height: 5'2.00" Weight: 200lbs. oz. [id number]; 24.00 BMI Method:Stated General Appearance: WD/WN, other (anxious) HEENT: PERRL/EOMI, other (dry oral mucosa) Neck: normal inspection Respiratory: lungs clear, normal breath sounds, no respiratory distress, no accessory muscle use Cardiovascular: regular rate, rhythm, tachycardia Gastrointestinal: abnormal bowel sounds (hypoactive), distended, guarding, tenderness Extremities: normal range of motion, normal inspection Neurologic/Psychiatric: alert, oriented x 3, other (anxious) Skin: normal color, warm/dry (CEE SHAW MD) Progress/Results/Core Measures Results/Orders Lab Results Laboratory Tests Test 06/22/22 17:06 06/22/22 18:40 Range/Units Urine Color YELLOW Urine Clarity CLEAR Urine pH 8.5 5-9 Urine Specific [place] 1.010 L 1.016-1.022 Urine Protein 1+ H NEGATIVE Urine Glucose (UA) NEGATIVE NEGATIVE Urine Ketones NEGATIVE NEGATIVE Urine Nitrite NEGATIVE NEGATIVE Urine Bilirubin NEGATIVE NEGATIVE Urine Urobilinogen 0.2 < = 1.0 MG/DL Urine Leukocyte Esterase TRACE H NEGATIVE Urine RBC (Auto) NEGATIVE NEGATIVE Urine RBC NONE /HPF Urine WBC 5-10 H /HPF Urine Squamous Epithelial Cells 5-10 /HPF Urine Crystals NONE /LPF Urine Bacteria TRACE /HPF Urine Casts NONE /LPF Urine Mucus NEGATIVE /LPF Urine Culture Indicated YES Urine Opiates Screen NEGATIVE NEGATIVE Urine Oxycodone Screen POSITIVE H NEGATIVE Urine Methadone Screen NEGATIVE NEGATIVE Urine Propoxyphene Screen NEGATIVE NEGATIVE Urine Barbiturates Screen NEGATIVE NEGATIVE Ur Tricyclic Antidepressants Screen NEGATIVE NEGATIVE Urine Phencyclidine Screen NEGATIVE NEGATIVE Urine Amphetamines Screen POSITIVE H NEGATIVE Urine Methamphetamines Screen POSITIVE H NEGATIVE Urine Benzodiazepines Screen POSITIVE H NEGATIVE Urine Cocaine Screen NEGATIVE NEGATIVE Urine Cannabinoids Screen POSITIVE H NEGATIVE White Blood Count 12.5 H 4.3-11.0 10^3/uL Red Blood Count 4.12 3.80-5.11 10^6/uL Hemoglobin 10.3 L 11.5-16.0 g/dL Hematocrit 31 L 35-52 % Mean Corpuscular Volume 76 L 80-99 fL Mean Corpuscular Hemoglobin 25 25-34 pg Mean Corpuscular Hemoglobin Concent 33 32-36 g/dL Red Cell Distribution Width 16.4 H 10.0-14.5 % Platelet Count 334 130-400 10^3/uL Mean Platelet Volume 9.3 9.0-12.2 fL Immature Granulocyte % (Auto) 0 % Neutrophils (%) (Auto) 71 42-75 % Lymphocytes (%) (Auto) 20 12-44 % Monocytes (%) (Auto) 8 0-12 % Eosinophils (%) (Auto) 0 0-10 % Basophils (%) (Auto) 0 0-10 % Neutrophils # (Auto) 8.9 H 1.8-7.8 10^3/uL Lymphocytes # (Auto) 2.5 1.0-4.0 10^3/uL Monocytes # (Auto) 1.0 0.0-1.0 10^3/uL Eosinophils # (Auto) 0.0 0.0-0.3 10^3/uL Basophils # (Auto) 0.0 0.0-0.1 10^3/uL Immature Granulocyte # (Auto) 0.1 0.0-0.1 10^3/uL Sodium Level 131 L 135-145 MMOL/L Potassium Level 3.6 3.6-5.0 MMOL/L Chloride Level 99 98-107 MMOL/L Carbon Dioxide Level 21 21-32 MMOL/L Anion Gap 11 5-14 MMOL/L Blood Urea Nitrogen 10 7-18 MG/DL Creatinine 0.71 0.60-1.30 MG/DL Estimat Glomerular Filtration Rate 119 BUN/Creatinine Ratio 14 Glucose Level 98 70-105 MG/DL Calcium Level 8.9 8.5-10.1 MG/DL Corrected Calcium 9.3 8.5-10.1 MG/DL Total Bilirubin 0.8 0.1-1.0 MG/DL Aspartate Amino Transf (AST/SGOT) 14 5-34 U/L Alanine Aminotransferase (ALT/SGPT) 15 0-55 U/L Alkaline Phosphatase 75 40-136 U/L Total Protein 7.1 6.4-8.2 GM/DL Albumin 3.5 3.2-4.5 GM/DL Amylase Level 31 25-125 U/L Lipase 10 8-78 U/L (AINSLEY NARVAEZ DO) My Orders Orders - AINSLEY NARVAEZ DO Amylase (06/22/22 18:03) Drug Screen Stat (Urine) (06/22/22 18:03) Ct Abdomen/Pelvis Wo (06/22/22 19:19) (AINSLEY NARVAEZ DO) Medications Given in ED Current Medications Medications Dose Ordered Sig/[place] Route Start Time Stop Time Status Last Admin Dose Admin Fentanyl Citrate 50 mcg ONCE ONCE IVP 06/22/22 18:00 06/22/22 18:01 DC 06/22/22 18:43 50 MCG Ondansetron HCl 8 mg ONCE ONCE IVP 06/22/22 18:00 06/22/22 18:01 DC 06/22/22 18:43 8 MG (AINSLEY NARVAEZ DO) Vital Signs/I&O 06/22/22 16:58 Temp 36.2 Pulse 126 Resp 16 B/P (MAP) 106/75 (85) Pulse Ox 100 O2 Delivery Room Air (AINSLEY NARVAEZ DO) Blood Pressure Mean: [address] ABDOMEN/PELVIS--PER RADIOLOGIST REPORT AT 2004 FINDINGS: Limited views of the lower thorax are unremarkable. The liver is normal without focal lesion. There is no biliary ductal dilation. Gallbladder is absent. Pancreas is normal. Spleen is normal. Adrenal glands are normal. The kidneys are normal. There is no hydronephrosis. Urinary bladder is normal. There is a pessary in the vagina. Bowel is normal in caliber without obstruction or inflammation. A large amount of stool is present in the colon. No free fluid or air. No abdominal or pelvic lymphadenopathy. Aorta is normal in caliber without aneurysm. There is no suspicious osseus lesion. IMPRESSION: No acute abnormality in the abdomen or pelvis. Reviewed: Reviewed by Me (AINSLEY NARVAEZ DO) Transfer of Care Time: 18:00 Care transferred to: Dr Narvaez at shift change (CEE SHAW MD) Departure Impression Primary Impression: Abdominal pain Qualified Codes: R10.10 - Upper abdominal pain, unspecified Additional Impressions: Urinary tract infection Illicit drug use Disposition: HOME, SELF-CARE Condition: Stable Departure-Patient Inst. Decision time for Depature: 20:05 (AINSLEY NARVAEZ DO) Referrals: NO,LOCAL PHYSICIAN (PCP) Primary Care Physician [facility] Patient Instructions: Abdominal Pain, Adult ED, Polysubstance Use Disorder (DC), Urinary Tract Infection, Adult (DC) Add. Discharge Instructions: CLEAR LIQUIDS--WATER, BROTH, JELLO, GATORADE TOMORROW IF YOU ARE BETTER, ADD BRATS DIET TO CLEAR LIQUIDS--BANANAS, RICE, APPLESAUCE, TOAST, SALTINES NO DRUGS!!! NO ALCOHOL FOLLOW UP WITH [facility] IN 2-3 DAYS FOR FURTHER CARE--CALL IN THE MORNING TO SCHEDULE APPOINTMENT All discharge instructions reviewed with patient and/or family. Voiced understanding. Scripts Ondansetron (Ondansetron Odt) 8 Mg Tab.rapdis 8 MG PO Q4H PRN for NAUSEA/VOMITING, #10 TAB Prov: AINSLEY NARVAEZ DO 06/22/22 Pantoprazole Sodium (Protonix) 40 Mg Tablet.dr 40 MG PO DAILY, #15 TAB Prov: AINSLEY NARVAEZ DO 06/22/22 Dicyclomine HCl (Dicyclomine HCl) 20 Mg Tablet 20 MG PO Q6H for Abdominal Pain, #20 TAB Prov: AINSLEY NARVAEZ DO 06/22/22 Hyoscyamine Sulfate (Levsin-Sl) 0.125 Mg Tab.subl 0.25 MG SL Q4H, #12 TAB Prov: AINSLEY NARVAEZ DO 06/22/22 Nitrofurantoin Monohyd/M-Cryst (Macrobid 100 mg Capsule) 100 Mg Capsule 1 TAB PO BID, #20 CAP Prov: AINSLEY NARVAEZ DO 06/22/22 CEE SHAW MD Jun 22, 2022 17:53 AINSLEY NARVAEZ DO Jun 22, 2022 20:05
[2022-06-22] MEDS ORDERED: fentaNYL INJ 100 MCG/2 ML AMP IVP ONE (18:00)
[2022-06-22] MEDS ORDERED: ONDANSETRON 4 MG/2 ML (SDV) Z0FRAN IVP ONE (18:00)
[2022-06-22] MEDS ORDERED: NS IV 1000 ML 1,000 ML IV SCH (18:00)
[2022-06-22 18:22] LABS: AMPHETAMINE SCREEN, URINE POSITIVE (NEGATIVE); BARBITURATE SCREEN URINE NEGATIVE (NEGATIVE); BENZODIAZEPINES SCREEN URINE POSITIVE (NEGATIVE); CANNABINOID SCREEN, URINE POSITIVE (NEGATIVE); COCAINE SCREEN URINE NEGATIVE (NEGATIVE); METHADONE STAT NEGATIVE (NEGATIVE); OPIATE SCREEN URINE NEGATIVE (NEGATIVE); OXYCODONE STAT POSITIVE (NEGATIVE); PROPOXYPHENE STAT NEGATIVE (NEGATIVE); TRICYCLIC ANTIDEPRESSANTS SCRE NEGATIVE (NEGATIVE)
[2022-06-22 18:58] LABS: BASOPHILS % (AUTO) 0 % (0-10); EOSINOPHILS % (AUTO) 0 % (0-10); HEMATOCRIT 31 % (35-52); HEMOGLOBIN 10.3 g/dL (11.5-16.0); LYMPHOCYTES # (AUTO) 2.5 10^3/uL (1.0-4.0); LYMPHOCYTES % (AUTO) 20 % (12-44); MEAN CORPUSCULAR HEMOGLOBIN 25 pg (25-34); MEAN CORPUSCULAR HGB CONC 33 g/dL (32-36); MEAN CORPUSCULAR VOLUME 76 fL (80-99); MEAN PLATELET VOLUME 9.3 fL (9.0-12.2); MONOCYTES % (AUTO) 8 % (0-12); NEUTROPHILS # (AUTO) 8.9 10^3/uL (1.8-7.8); NEUTROPHILS % (AUTO) 71 % (42-75); PLATELET COUNT 334 10^3/uL (130-400); WHITE BLOOD COUNT 12.5 10^3/uL (4.3-11.0)
[2022-06-22 19:08] LABS: ALBUMIN 3.5 GM/DL (3.2-4.5); POTASSIUM 3.6 MMOL/L (3.6-5.0)
[2022-06-22 19:09] LABS: CALCIUM 8.9 MG/DL (8.5-10.1)
[2022-06-22 19:10] LABS: TOTAL PROTEIN 7.1 GM/DL (6.4-8.2)
[2022-06-22 19:12] LABS: BILIRUBIN,TOTAL 0.8 MG/DL (0.1-1.0)
[2022-06-22 19:14] LABS: CREATININE SERUM 0.71 MG/DL (0.60-1.30)
--- NOTE | 2022-06-22 19:59 | Diagnostic Imaging Report ---
EXAMINATION: CT abdomen and pelvis without contrast. TECHNIQUE: Multiple contiguous axial images were obtained through the abdomen and pelvis without the use of intravenous contrast. All CT scans use one or more of the following dose optimizing techniques: automated exposure control, MA and/or KvP adjustment based on patient size and exam type or iterative reconstruction. HISTORY: Abdominal pain. COMPARISON: 07/28/2013. FINDINGS: Limited views of the lower thorax are unremarkable. The liver is normal without focal lesion. There is no biliary ductal dilation. Gallbladder is normal. Pancreas is normal. Spleen is normal. Adrenal glands are normal. The kidneys are normal. There is no hydronephrosis. Urinary bladder is normal. Bowel is normal in caliber without obstruction or inflammation. No free fluid or air. No abdominal or pelvic lymphadenopathy. Aorta is normal in caliber without aneurysm. There is no suspicious osseous lesion. IMPRESSION: No acute abnormality in the abdomen or pelvis. Dictated by: Dictated on workstation # [id number]
[2022-06-22] MEDS ORDERED: PANT40TA2 PO (20:11)
[2022-06-22] MEDS ORDERED: NITR-65 PO (20:11)
[2022-06-22] MEDS ORDERED: HYOS0.1283 SL (20:11)
[2022-06-22] MEDS ORDERED: ONDA8TAB13 PO (20:11)
[2022-06-22] MEDS ORDERED: DICY20TA PO (20:11)
[2022-06-22 22:57] VITALS: BP 145/94
== END 2022-06-22 20:17 | disposition home or self-care (01) ==
LOC: EDUNIT# 16:45 → ER 16:47
DX: N39.0 Urinary tract infection, site not specified (principal); F19.90 Other psychoactive substance use, unspecified, uncomplicated; F17.210 Nicotine dependence, cigarettes, uncomplicated; Z90.49 Acquired absence of other specified parts of digestive tract; Z28.310 Unvaccinated for COVID-19
CPT/HCPCS: 36415; 74176; 80053; 80306; 81000; 82150; 83690; 84703; 85025; 87088; 96361; 96374; 96375